=== PATIENT | male | born 1950 ===

== ENCOUNTER 2017-09-26 09:04 | Emergency (ER) | payer MEDICARE, MEDICAID ==
[2017-09-26 09:10] VITALS: BP 166/90; PULSE 90; RESP 17; TEMP 97.3; O2SAT 99
--- NOTE | 2017-09-26 09:55 | C.PDOC ---
History Of Present Illness 67 year old male presents to the ED c/o worsening left hip pain for the past 4 months. Patient states his pain is localized in the front of the hip, pain worsens with movement. Patient took Advil 2-3 pills, Tylenol with limited relief. Patient states she has not gone to she her PMD for evaluation of her symptoms. Patient denies any new trauma, other associated symptoms. WORSENING L HIP PAIN X 4 MONTHS. NO TRAUMA. NO PRIOR PMD EVAL FOR SAME. PAIN LOCALIZED FRONT OF HIT WORSE W MOVEMENT. LIMITED RELIEF W ADVIL 2-3 PILLS, TYLENOL. DENIES OTHER ASSOC SX EXAM MILD DIST NONTOXIC HIP R HIP AROM WO DIFF NONTEND; L HIP: FULL ROM REPRODUC PAIN W EXTREME FLEXION. NO FOCAL TEND. ATRAUM NEURO INTACT SKIN NO LESIONS. Time Seen by Provider: 09/26/17 09:17 Chief Complaint (Nursing): Hip Pain History Per: Patient History/Exam Limitations: no limitations Onset/Duration Of Symptoms: Days Current Symptoms Are (Timing): Still Present Recent travel outside of the [place]: No Additional History Per: Patient - Hip Description Of Injury: Other Currently Unable To: Bend Or Move Past Medical History Reviewed: Historical Data, Nursing Documentation, Vital Signs Vital Signs: Last Vital Signs Temp 97.3 F L 09/26/17 09:08 Pulse 90 09/26/17 09:08 Resp 17 09/26/17 09:08 BP 166/90 H 09/26/17 09:08 Pulse Ox 99 09/26/17 10:21 - Medical History PMH: Anxiety, Depression, HTN Denies: Asthma Surgical History: No Surg Hx Family History: States: Unknown Family Hx - Social History Hx Tobacco Use: Yes Hx Alcohol Use: Yes Hx Substance Use: No - Immunization History Hx Tetanus Toxoid Vaccination: Yes Hx Influenza Vaccination: No Hx Pneumococcal Vaccination: Yes Review Of Systems Constitutional: Negative for: Fever, Chills Cardiovascular: Negative for: Chest Pain Respiratory: Negative for: Cough, Shortness of Breath Gastrointestinal: Negative for: Nausea, Vomiting, Abdominal Pain Musculoskeletal: Positive for: Leg Pain (Hip) Skin: Negative for: Rash Neurological: Negative for: Weakness, Numbness, Headache Physical Exam - Physical Exam Appears: Non-toxic, Other (Mild distress) Skin: Normal Color, Warm, Dry Head: Atraumatic, Normacephalic Nose: No Discharge, No Deformity Extremity: Normal ROM (Right hip, no difficulty. Left Hip reproducible pain with extreme flexion), No Tenderness (right anf left hip), Capillary Refill (< 2 seconds), No Deformity (right and left hip), No Swelling, Other (No skin lesions) Neurological/Psych: Oriented x3, Normal Speech, Normal Cognition, Normal Motor, Normal Sensation, Other (No focal deficits) ED Course And Treatment O2 Sat by Pulse Oximetry: 99 (On RA) Pulse Ox Interpretation: Normal - Other Rad L HIP X-Ray: Interpreted by Me (NEG) Medical Decision Making Medical Decision Making: Impression : worsening left hip pain Plan: * Toradol 60 mg IM * Left Hip X-Ray Disposition Counseled Patient/Family Regarding: Studies Performed, Diagnosis, Need For Followup, Rx Given - Disposition Referrals: [facility] [Outside] [facility] [Outside] Callie Luu MD [Staff Provider] - Disposition: HOME/ ROUTINE Disposition Time: 10:19 Condition: IMPROVED Prescriptions: Acetaminophen [Tylenol Extra Strength] 2 tab PO Q6 #30 tablet Lidocaine 5% [Lidoderm] 1 ea TD PRN PRN #10 patch PRN Reason: Pain, Moderate (4-7) Naproxen 500 mg PO BID #30 tab Instructions: Hip Pain (ED) Forms: [facility] (Portuguese) Print Language: PORTUGUESE - Clinical Impression Clinical Impression: Chronic hip pain - Scribe Statement The provider has reviewed the documentation as recorded by the Scribe Earle Watsno All medical record entries made by the Scribe were at my direction and personally dictated by me. I have reviewed the chart and agree that the record accurately reflects my personal performance of the history, physical exam, medical decision making, and the department course for this patient. I have also personally directed, reviewed, and agree with the discharge instructions and disposition.
--- NOTE | 2017-09-26 10:20 | RAD ---
PROCEDURE: Left Hip X-ray Radiographs. HISTORY: PAIN COMPARISON: None. FINDINGS: BONES: Normal. No fracture. JOINTS: Normal. SOFT TISSUES: Normal. OTHER FINDINGS: None. IMPRESSION: Normal left hip radiographs.
== END 2017-09-26 10:35 | disposition home or self-care (01) ==
LOC: C.ER 09:04
DX: G89.29 Other chronic pain (principal); M25.552 Pain in left hip
CPT/HCPCS: 73502; 96372; 99284; J1885

== ENCOUNTER 2018-09-16 00:59 | Inpatient (IN) | payer MEDICARE, MEDICAID ==
[2018-09-16 01:15] VITALS: BMI 20.5
--- NOTE | 2018-09-16 01:17 | C.PDOC ---
History Of Present Illness The patient is brought to the ED by EMS accompanied by family for evaluation. As per family, patient was evaluated by his primary doctor for a regular visit yesterday and was prescribed antibiotics for cough. Patient went home and st arted his course of Azithromycin. Shortly after, patient had around 4-5 episodes of diarrhea and around 4 episodes of vomiting. Patients then heard a noise and found patient syncopized in the bathroom. Patient was noted to have low blood pressure (71/40) and was given 500cc of normal saline by EMS en route to the ED. Patient presents to the ED alert and oriented. He denies any pain at this time. Time Seen by Provider: 09/16/18 01:16 Chief Complaint (Nursing): Syncope History Per: Patient, EMS, Family History/Exam Limitations: no limitations Onset/Duration Of Symptoms: Hrs Current Symptoms Are (Timing): Better Severity: Severe Pain Scale Rating Of: 7 Reports Recently: Treated By A Physician Recent travel outside of the [place]: No Additional History Per: Patient, EMS, Family Past Medical History Reviewed: Historical Data, Nursing Documentation, Vital Signs Vital Signs: Last Vital Signs Temp 97.5 F L 09/16/18 01:08 Pulse 78 09/16/18 01:08 Resp 22 09/16/18 01:08 BP 78/46 L 09/16/18 01:08 Pulse Ox 88 L 09/16/18 01:08 - Medical History PMH: Anxiety, COPD, Depression, HTN Denies: Asthma Surgical History: No Surg Hx Family History: States: Unknown Family Hx - Social History Hx Tobacco Use: Yes Hx Alcohol Use: Yes Hx Substance Use: No - Immunization History Hx Tetanus Toxoid Vaccination: Yes Hx Influenza Vaccination: No Hx Pneumococcal Vaccination: No Review Of Systems Constitutional: Positive for: Weakness, Malaise. Negative for: Fever, Chills Cardiovascular: Negative for: Chest Pain, Palpitations Respiratory: Positive for: Cough. Negative for: Shortness of Breath Gastrointestinal: Positive for: Vomiting, Diarrhea. Negative for: Nausea, Abdominal Pain Genitourinary: Negative for: Dysuria Musculoskeletal: Negative for: Back Pain Skin: Negative for: Rash, Lesions, Jaundice, Bruising Neurological: Positive for: Other (sycopal episode ). Negative for: Weakness, Numbness Psych: Negative for: Anxiety Physical Exam - Physical Exam Appears: Non-toxic, In Acute Distress Skin: Warm, Dry, Other (poor turgor ) Head: Normacephalic, Other (no obvious signs of trauma/injury ) Eye(s): bilateral: Normal Inspection Oral Mucosa: Dry Neck: Supple Chest: Symmetrical, No Deformity, No Tenderness Cardiovascular: Rhythm Regular, No Murmur Respiratory: No Rales, Rhonchi (scattered), No Wheezing Gastrointestinal/Abdominal: Soft, No Tenderness, No Guarding, No Rebound Back: No CVA Tenderness Extremity: Normal ROM, Capillary Refill (less than 2 seconds ) Extremity: Bilateral: Atraumatic Pulses: Left Dorsalis Pedis: Normal, Right Dorsalis Pedis: Normal Neurological/Psych: Oriented x3 Gait: Unable To Assess ED Course And Treatment - Laboratory Results Result Diagrams: 09/16/18 01:18 09/16/18 01:18 ECG: Interpreted By Me, Viewed By Me ECG Rhythm: Sinus Rhythm O2 Sat by Pulse Oximetry: 88 (on RA) Pulse Ox Interpretation: Normal - Radiology CXR: Interpreted by Me, Viewed By Me CXR Interpretation: Yes: COPD. No: Infiltrates, Fracture, Pnemothorax Progress Note: Bloodwork, urinalysis, CT Head, CXR, EKG ordered and reviewed. Zosyn IVPB and IV Fluids given. Disposition Discussed With DrMindy: Obie Patton Comment: accepted the pt on his service and took over the care at 4:38AM Doctor Will See Patient In The: Hospital Counseled Patient/Family Regarding: Studies Performed, Diagnosis - Disposition Disposition: HOSPITALIZED Disposition Time: 01:16 Condition: FAIR Forms: [facility] (Zimbabwean) - POA Present On Arrival: Falls Or Trauma, Poor Glycemic Control - Clinical Impression Clinical Impression: Syncope, Severe dehydration, Renal insufficiency, Diarrhea, Vomiting - Scribe Statement The provider has reviewed the documentation as recorded by the Scribe (Chen Kessler) Provider Attestation: All medical record entries made by the Scribe were at my direction and personally dictated by me. I have reviewed the chart and agree that the record accurately reflects my personal performance of the history, physical exam, medical decision making, and the department course for this patient. I have also personally directed, reviewed, and agree with the discharge instructions and disposition. Decision To Admit - Pt Status Changed To: Hospital Disposition Of: Inpatient - Admit Certification Admit to Inpatient:: After my assessment, the patient will require hosp italization for at least two midnights. This is because of the severity of symptoms shown, intensity of services needed, and/or the medical risk in this patient being treated as an outpatient. - InPatient: Physician Admission Certification: I certify that this patient requires 2 or more midnights of care for the following reason:: After my assessment, the pa tient will require hospitalization for at least two midnights. This is because of the severity of symptoms shown, intensity of services needed, and/or the medical risk in this patient being treated as an outpatient. - . Bed Request Type: Telemetry Admitting Physician: Obie Patton Patient Diagnosis: Syncope, Severe dehydration, Renal insufficiency, Diarrhea, Vomiting
[2018-09-16 01:21] LABS: BASO # 0.1 K/uL (0.0-0.2); BASO % 0.9 % (0.0-2.0); LYMPH # 0.8 K/uL (1.0-4.3)
[2018-09-16 01:23] LABS: VENOUS BLOOD GAS BASE EXCESS -1.1 mmol/L (0.0-2.0); VENOUS BLOOD GAS PCO2 45 mmHg (40-60); VENOUS BLOOD GAS PO2 20 mm/Hg (30-55); VENOUS BLOOD PH 7.35 (7.32-7.43)
[2018-09-16 01:25] LABS: HEMOGLOBIN 16.2 g/dL (12.0-18.0); LYMPH % 11.3 % (20.0-40.0); MEAN CORPUSCULAR HEMOGLOBIN 34.2 pg (27.0-31.0); MEAN CORPUSCULAR HGB CONC 34.4 g/dL (33.0-37.0); MEAN PLATELET VOLUME 8.3 fL (7.2-11.7); MONO % 14.5 % (0.0-10.0); NEUT # 4.9 K/uL (1.8-7.0); NEUT % 73.3 % (50.0-75.0); NRBC % 0.1 % (0.0-2.0); RBC 4.73 Mil/uL (4.40-5.90); RED CELL DISTRIBUTION WIDTH 13.3 % (11.5-14.5); WHITE BLOOD COUNT 6.7 K/uL (4.8-10.8)
[2018-09-16 01:27] LABS: MEAN CELL VOLUME 99.3 fL (80.0-94.0)
[2018-09-16 01:31] LABS: INR 1.1
[2018-09-16 01:32] LABS: ALB/GLOB RATIO 1.3 (1.0-2.1); ALBUMIN 5.1 g/dL (3.5-5.0); CALCIUM 10.2 mg/dl (8.6-10.4)
[2018-09-16] MEDS ORDERED: Sodium Chloride 0.9% 2,000 ML IV ONE (01:39)
[2018-09-16 01:44] LABS: CK-MB 0.27 ng/mL (0.0-3.38); TROPONIN I 0.051 ng/mL (0.00-0.120)
[2018-09-16] MEDS ORDERED: Sodium Chloride 0.9% 1,000 ML IV ONE (02:28)
[2018-09-16] MEDS ORDERED: Sodium Chloride 0.9% 500 ML IV ONE (02:28)
[2018-09-16] MEDS ORDERED: Piperacillin/Tazobact 3.375 gm 100 ML IVPB STA (02:36)
[2018-09-16] MEDS ORDERED: Piperacillin/Tazobact 3.375 gm 100 ML IVPB ONE (02:45)
[2018-09-16 03:01] LABS: SPERM URINE FEW /hpf; SQUAMOUS EPITHIAL < 1 /hpf (0-5); URINE BILIRUBIN NEGATIVE (NEGATIVE); URINE BLOOD 1+ (NEGATIVE); URINE CLARITY Hazy (Clear); URINE COLOR Amber (YELLOW); URINE GLUCOSE (UA) NORMAL (Normal); URINE LEUKOCYTE ESTERASE NEG Leu/uL (Negative); URINE PROTEIN 2+ mg/dL (NEGATIVE)
[2018-09-16] MEDS ORDERED: Bacitracin 500 Units/gm Oint Foilpak UD ONE (05:30)
[2018-09-16 05:34] LABS: ABG ALLEN TEST POS; ARTERIAL BLOOD GAS HCO3 20.6 mmol/L (21-28); ARTERIAL BLOOD GAS HEMOGLOBIN 14.1 g/dL (11.7-17.4); ARTERIAL BLOOD GAS O2 SAT 97.3 % (95-98); ARTERIAL BLOOD GAS PCO2 27 mm/Hg (35-45); ARTERIAL BLOOD GAS PH 7.42 (7.35-7.45); ARTERIAL BLOOD GAS PO2 75 mm/Hg (80-100); ARTERIAL BLOOD GAS TCO2 18.3 mmol/L (22-28)
[2018-09-16 05:56] LABS: ALB/GLOB RATIO 1.3 (1.0-2.1); CALCIUM 9.1 mg/dl (8.6-10.4)
[2018-09-16] MEDS: Dextrose 5%/0.9% NS 1,000 ML IV SCH ×2 (05:57→18:08)
[2018-09-16] MEDS ORDERED: Albuterol 0.083% Inhal Sol (2.5 mg/3 mL) UD INH PRN ×2 (07:12→07:30)
--- NOTE | 2018-09-16 07:35 | RAD ---
Date of service: 09/16/2018 HISTORY: r/o infiltrate bed 7 COMPARISON: Chest radiographs 01/24/2017. FINDINGS: LUNGS: Diminished inspiratory volume. No infiltrates identified bilaterally. PLEURA: No significant pleural effusion identified, no pneumothorax apparent. CARDIOVASCULAR: No aortic atherosclerotic calcification present. Normal cardiac size. No pulmonary vascular congestion. OSSEOUS STRUCTURES: No significant abnormalities. VISUALIZED UPPER ABDOMEN: Normal. OTHER FINDINGS: None. IMPRESSION: No acute infiltrate bilaterally, pleural effusion or pulmonary vascular congestion. Diminished inspiratory volume noted in the interval.
[2018-09-16] MEDS ORDERED: Sodium Chloride 0.9% 250 ML IV ONE (07:45)
[2018-09-16] MEDS ORDERED: Albuterol 0.083% Inhal Sol (2.5 mg/3 mL) UD INH SCH (08:00)
--- NOTE | 2018-09-16 08:59 | CT ---
Date of service: 09/16/2018 PROCEDURE: CT HEAD WITHOUT CONTRAST. HISTORY: syncope COMPARISON: None available. TECHNIQUE: Axial computed tomography images were obtained through the head/brain without intravenous contrast. Radiation dose: Total exam DLP = 774.19 mGy-cm. This CT exam was performed using one or more of the following dose reduction techniques: Automated exposure control, adjustment of the mA and/or kV according to patient size, and/or use of iterative reconstruction technique. FINDINGS: HEMORRHAGE: No intracranial hemorrhage. BRAIN: Good corticomedullary differentiation is seen. Proportional, diffuse expansion of the ventriculosulcal and cisternal spaces is appreciated with white matter lucency compatible with diffuse cerebral atrophy and chronic microangiopathy. No suspicious extra-axial fluid collection is identified and the midline brain anatomy appears grossly nonfocal as imaged. There is no mass effect throughout. VENTRICLES: Unremarkable. No hydrocephalus. CALVARIUM: No fracture or destructive lesion appreciated. PARANASAL SINUSES: Multifocal mucosal plantar changes bilateral ethmoid sinuses. MASTOID AIR CELLS: Unremarkable as visualized. No inflammatory changes. OTHER FINDINGS: None. IMPRESSION: Age-appropriate age related neuro degenerative changes are identified with no definite acute intracranial findings as discussed above. Follow-up CT or MRI are available if clinically warranted. Concordant preliminary report from [facility], 09/16/2018 4:16 a.m..
[2018-09-16] MEDS: Sodium Chloride 0.9% 1,000 ML IV SCH ×4 (09:58→20:30)
[2018-09-16] MEDS ORDERED: Sodium Chloride 0.45% 1,000 ML IV ONE (10:13)
--- NOTE | 2018-09-16 15:43 | CP.PCM.CON ---
<Eh Trejo - Last Filed: 09/16/18 17:13> History of Present Illness - History of Present Illness History of Present Illness: 68 year old male with a past medical history of anxiety, depression and hypertension presents to the hospital after having a syncopal episode while at home with his . Patient was at home when his heard and noise and found her on the floor. Previously, patient had multiple episodes of non- bloody diarheaa and non-bilious, non bloody vomiting while at home. Patient was seen at his primary doctor office recently and was prescribed Azithromycin for his symptoms. Patient denies any chest pain, headaches, dizziness, fevers, chills, changes in vision, or any other complaints. PMD: Dr. De Dios Medical history: anxiety, depression, hypertension Surgical history: Denies Allergies: Denies Family history: Denies Social history: Admits tobacco and alcohol use. Denies illicit drug use. Review of Systems - Constitutional Constitutional: absent: Anorexia, Frequent Falls, Night Sweats, Weight Loss, Weakness - EENT Eyes: absent: Blurred Vision, Requires Corrective Lenses, Other Visual Disturbances Ears: absent: Ear Discharge, Dizziness Nose/Mouth/Throat: absent: Epistaxis, Nasal Congestion, Nose Pain, Bleeding Gums, Dysphagia, Mouth Pain - Cardiovascular Cardiovascular: absent: Chest Pain, Claudication, Irregular Heart Rhythm, Leg Edema, Palpitations, Syncope - Respiratory Respiratory: Cough. absent: Dyspnea, Stridor, Excessive Mucous Production - Gastrointestinal Gastrointestinal: Diarrhea, Nausea, Vomiting. absent: Abdominal Pain, Fecal Incontinence, Loose Stools - Musculoskeletal Musculoskeletal: absent: Abnormal Gait, Muscle Weakness, Stiffness - Integumentary Integumentary: absent: Alopecia, Change in Pigmentation, Photosensitivity, Swelling - Neurological Neurological: absent: Dizziness, Tremor, Vertigo, Weakness - Psychiatric Psychiatric: absent: Abnormal Sleep Pattern, Anhedonia, Hopelessness, Panic Attacks - Endocrine Endocrine: absent: Polydipsia, Polyphagia, Polyuria - Hematologic/Lymphatic Hematologic: absent: Easy Bleeding, Easy Bruising Past Patient History - Infectious Disease Hx of Infectious Diseases: None - Past Medical History & Family History Past Medical History?: Yes - Past Social History Smoking Status: Heavy Smoker > 10 Cigarettes Daily - CARDIAC Hx Cardiac Disorders: Yes Hx Hypertension: Yes - PULMONARY Hx Respiratory Disorders: Yes Hx Asthma: No Hx Chronic Obstructive Pulmonary Disease (COPD): Yes - NEUROLOGICAL Hx Neurological Disorder: Yes HX Cerebrovascular Accident: Yes - HEENT Hx HEENT Problems: No - RENAL Hx Chronic Kidney Disease: No - ENDOCRINE/METABOLIC Hx Endocrine Disorders: No - HEMATOLOGICAL/ONCOLOGICAL Hx Blood Disorders: No - INTEGUMENTARY Hx Dermatological Problems: No - MUSCULOSKELETAL/RHEUMATOLOGICAL Hx Musculoskeletal Disorders: No Hx Falls: Yes - GASTROINTESTINAL Hx Gastrointestinal Disorders: No - GENITOURINARY/GYNECOLOGICAL Hx Genitourinary Disorders: No - PSYCHIATRIC Hx Psychophysiologic Disorder: Yes Hx Anxiety: Yes Hx Depression: Yes Hx Substance Use: No - SURGICAL HISTORY Hx Surgeries: No - ANESTHESIA Hx Anesthesia: No Meds Allergies/Adverse Reactions: Allergies Allergy/AdvReac Type Severity Reaction Status Date / Time No Known Allergies Allergy Verified 09/16/18 01:16 - Medications Medications: Current Medications Acetaminophen (Tylenol 325mg Tab) 650 mg PO Q6 PRN PRN Reason: Fever >100.4 F Albuterol Sulfate (Albuterol 0.083% Inhal Deidre (2.5 Mg/3 Ml) Ud) 2.5 mg INH RQ4 PRN PRN Reason: Shortness of Breath Chlordiazepoxide (Librium) 50 mg PO Q12H [facility] Heparin Sodium (Porcine) (Heparin) 5,000 units SC Q12 [facility] Last Admin: 09/16/18 10:29 Dose: 5,000 units Dextrose/Sodium Chloride (Dextrose 5%/0.9% Ns 1000 Ml) 1,000 mls @ 80 mls/hr IV .[id number] [facility] Last Admin: 09/16/18 05:57 Dose: 80 mls/hr Sodium Chloride (Sodium Chloride 0.9%) 1,000 mls @ 250 mls/hr IV .Q4H [facility] Last Admin: 09/16/18 15:18 Dose: 250 mls/hr Influenza Virus Vaccine (Flucelvax Quad [id number] Syr) 60 mcg IM .ONCE ONE Stop: 09/17/18 10:01 Ondansetron HCl (Zofran Inj) 4 mg IVP DAILY PRN PRN Reason: Nausea/Vomiting Pantoprazole Sodium (Protonix Inj) 40 mg IVP DAILY [facility] Last Admin: 09/16/18 15:18 Dose: 40 mg Paroxetine HCl (Paxil) 20 mg PO DAILY [facility] Last Admin: 09/16/18 15:18 Dose: 20 mg Pneumococcal Polyvalent Vaccine (Pneumovax 23 Vaccine) 0.5 ml IM .ONCE ONE Stop: 09/17/18 10:01 Promethazine HCl (Phenergan Syrup) 6.25 mg PO Q4H PRN PRN Reason: Cough Physical Exam - Head Exam Head Exam: ATRAUMATIC, NORMAL INSPECTION, NORMOCEPHALIC - Eye Exam Eye Exam: EOMI, Normal appearance, PERRL. absent: Periorbital tenderness Pupil Exam: NORMAL ACCOMODATION, PERRL. absent: Irregular, Unequal - ENT Exam ENT Exam: Mucous Membranes Moist, Normal Oropharynx - Respiratory Exam Respiratory Exam: Clear to Auscultation Bilateral, NORMAL BREATHING PATTERN. absent: Prolonged Expiratory Phase, Respiratory Distress - Cardiovascular Exam Cardiovascular Exam: REGULAR RHYTHM, +S1, +S2 - GI/Abdominal Exam GI & Abdominal Exam: Normal Bowel Sounds, Soft. absent: Tenderness - Extremities Exam Extremities exam: Positive for: normal inspection. Negative for: full ROM, pedal edema - Back Exam Back exam: NORMAL INSPECTION. absent: paraspinal tenderness - Neurological Exam Neurological exam: Alert, CN II-XII Intact, Oriented x3 - Psychiatric Exam Psychiatric exam: Normal Affect, Normal Mood - Skin Skin Exam: Dry, Intact Results - Vital Signs Recent Vital Signs: Last Vital Signs Temp 97.7 F 09/16/18 12:00 Pulse 68 09/16/18 12:00 Resp 20 09/16/18 12:00 BP 96/52 L 09/16/18 12:00 Pulse Ox 96 09/16/18 12:00 - Labs Result Diagrams: 09/16/18 01:18 09/16/18 05:33 Labs: Laboratory Results - last 24 hr 09/16/18 09/16/18 09/16/18 01:05 01:08 01:15 WBC RBC Hgb Hct MCV MCH MCHC RDW Plt Count MPV Neut % (Auto) Lymph % (Auto) [place] % (Auto) Eos % (Auto) Baso % (Auto) Neut # (Auto) Lymph # (Auto) [place] # (Auto) Eos # (Auto) Baso # (Auto) PT INR APTT Puncture Site pCO2 pO2 20 L HCO3 ABG pH ABG Total CO2 ABG O2 Saturation ABG Base Excess ABG Hemoglobin ABG Carboxyhemoglobin POC ABG HHb (Measured) ABG Methemoglobin Ortiz Test VBG pH 7.35 VBG pCO2 45 VBG HCO3 22.2 VBG Total CO2 26.2 VBG O2 Sat (Calc) 34.2 L VBG Base Excess -1.1 L VBG Potassium 4.0 A-a O2 Difference Respiratory Index Hgb O2 Saturation Sodium 136.0 Chloride 98.0 Glucose 164 H Lactate 2.7 H Liter Flow FiO2 Potassium Carbon Dioxide Anion Gap BUN Creatinine Est GFR ( Amer) Est GFR (Non-Af Amer) POC Glucose (mg/dL) 175 H Random Glucose Lactic Acid Calcium Phosphorus Magnesium Total Bilirubin GGT AST ALT Alkaline Phosphatase Total Creatine Kinase CK-MB (Mass) Troponin I Total Protein Albumin Globulin Albumin/Globulin Ratio Venous Blood Potassium 4.0 Urine Color Renée Urine Clarity Hazy Urine pH 6.0 Ur Specific [place] 1.016 Urine Protein 2+ H Urine Glucose (UA) Normal Urine Ketones Negative Urine Blood 1+ H Urine Nitrate Negative Urine Bilirubin Negative Urine Urobilinogen 4.0 Ur Leukocyte Esterase Neg Urine WBC (Auto) 4 Urine RBC (Auto) 21 H Ur Squamous Epith Cells < 1 Hyaline Casts 6-10 H Urine Sperm (Auto) Few H 09/16/18 09/16/18 09/16/18 01:18 01:18 01:18 WBC 6.7 RBC 4.73 Hgb 16.2 Hct 47.0 MCV 99.3 H D MCH 34.2 H MCHC 34.4 RDW 13.3 Plt Count 349 D MPV 8.3 Neut % (Auto) 73.3 Lymph % (Auto) 11.3 L [place] % (Auto) 14.5 H Eos % (Auto) 0.0 Baso % (Auto) 0.9 Neut # (Auto) 4.9 Lymph # (Auto) 0.8 L [place] # (Auto) 1.0 H Eos # (Auto) 0.0 Baso # (Auto) 0.1 PT 12.0 INR 1.1 APTT 29 Puncture Site pCO2 pO2 HCO3 ABG pH ABG Total CO2 ABG O2 Saturation ABG Base Excess ABG Hemoglobin ABG Carboxyhemoglobin POC ABG HHb (Measured) ABG Methemoglobin Ortiz Test VBG pH VBG pCO2 VBG HCO3 VBG Total CO2 VBG O2 Sat (Calc) VBG Base Excess VBG Potassium A-a O2 Difference Respiratory Index Hgb O2 Saturation Sodium 135 Chloride 96 L Glucose Lactate Liter Flow FiO2 Potassium 4.2 Carbon Dioxide 23 Anion Gap 20 BUN 27 H Creatinine 3.1 H Est GFR ( Amer) 24 Est GFR (Non-Af Amer) 20 POC Glucose (mg/dL) Random Glucose 172 H D Lactic Acid Calcium 10.2 Phosphorus 7.3 H Magnesium 2.1 Total Bilirubin 1.1 GGT AST 84 H ALT 44 Alkaline Phosphatase 62 Total Creatine Kinase 124 CK-MB (Mass) 0.27 Troponin I 0.0510 Total Protein 9.1 H Albumin 5.1 H Globulin 4.0 H Albumin/Globulin Ratio 1.3 Venous Blood Potassium Urine Color Urine Clarity Urine pH Ur Specific [place] Urine Protein Urine Glucose (UA) Urine Ketones Urine Blood Urine Nitrate Urine Bilirubin Urine Urobilinogen Ur Leukocyte Esterase Urine WBC (Auto) Urine RBC (Auto) Ur Squamous Epith Cells Hyaline Casts Urine Sperm (Auto) 09/16/18 09/16/18 09/16/18 05:30 05:33 06:20 WBC RBC Hgb Hct MCV MCH MCHC RDW Plt Count MPV Neut % (Auto) Lymph % (Auto) [place] % (Auto) Eos % (Auto) Baso % (Auto) Neut # (Auto) Lymph # (Auto) [place] # (Auto) Eos # (Auto) Baso # (Auto) PT INR APTT Puncture Site Rr pCO2 27 L pO2 75 L HCO3 20.6 L ABG pH 7.42 ABG Total CO2 18.3 L ABG O2 Saturation 97.3 ABG Base Excess -5.4 L ABG Hemoglobin 14.1 ABG Carboxyhemoglobin 1.9 H POC ABG HHb (Measured) 2.6 ABG Methemoglobin 1.7 Ortiz Test Pos VBG pH VBG pCO2 VBG HCO3 VBG Total CO2 VBG O2 Sat (Calc) VBG Base Excess VBG Potassium A-a O2 Difference 91.0 Respiratory Index 1.2 Hgb O2 Saturation 93.8 L Sodium 134 Chloride 104 Glucose Lactate Liter Flow 2.0 FiO2 28.0 Potassium 4.1 Carbon Dioxide 21 L Anion Gap 13 BUN 24 H Creatinine 2.1 H Est GFR ( Amer) 38 Est GFR (Non-Af Amer) 31 POC Glucose (mg/dL) Random Glucose 148 H Lactic Acid 1.0 Calcium 9.1 Phosphorus Magnesium Total Bilirubin 0.9 GGT 65 AST 66 H D ALT 46 Alkaline Phosphatase 54 Total Creatine Kinase CK-MB (Mass) Troponin I Total Protein 7.1 Albumin 4.0 Globulin 3.1 Albumin/Globulin Ratio 1.3 Venous Blood Potassium Urine Color Urine Clarity Urine pH Ur Specific [place] Urine Protein Urine Glucose (UA) Urine Ketones Urine Blood Urine Nitrate Urine Bilirubin Urine Urobilinogen Ur Leukocyte Esterase Urine WBC (Auto) Urine RBC (Auto) Ur Squamous Epith Cells Hyaline Casts Urine Sperm (Auto) Assessment & Plan - Assessment and Plan (Free Text) Assessment: 68 year old male with a past medical history of hypertension, anxiety and depr ession admitted for syncopal episode. Cardiology consulted for syncope. Plan: 1.Syncope -EKG sinus rhythm on admission -Head CT: negative -Troponin (-)x1. Will trend 2. Cough -Promethazine 6.25mg PO Q4 PRN -dUONEB 2.5MG INH RQ4 PRN 3. Depression -Paxil 20mg PO Daily 4. Anxiety -Librium 50mg PO Q12 H ppx - Heparin -Protonix Plan discussed with Attending Dr. Billy. Eh Trejo, PGY-2 <José Antonio Billy - Last Filed: 09/16/18 22:06> Meds - Medications Medications: Current Medications Acetaminophen (Tylenol 325mg Tab) 650 mg PO Q6 PRN PRN Reason: Fever >100.4 F Albuterol Sulfate (Albuterol 0.083% Inhal Deidre (2.5 Mg/3 Ml) Ud) 2.5 mg INH RQ4 PRN PRN Reason: Shortness of Breath Chlordiazepoxide (Librium) 50 mg PO Q12H [facility] Last Admin: 09/16/18 18:08 Dose: 50 mg Heparin Sodium (Porcine) (Heparin) 5,000 units SC Q12 [facility] Last Admin: 09/16/18 21:46 Dose: 5,000 units Dextrose/Sodium Chloride (Dextrose 5%/0.9% Ns 1000 Ml) 1,000 mls @ 80 mls/hr IV .[id number] [facility] Last Admin: 09/16/18 18:08 Dose: Not Given Sodium Chloride (Sodium Chloride 0.9%) 1,000 mls @ 250 mls/hr IV .Q4H [facility] Last Admin: 09/16/18 20:30 Dose: Not Given Influenza Virus Vaccine (Flucelvax Quad [id number] Syr) 60 mcg IM .ONCE ONE Stop: 01/17/19 10:01 Ondansetron HCl (Zofran Inj) 4 mg IVP DAILY PRN PRN Reason: Nausea/Vomiting Pantoprazole Sodium (Protonix Inj) 40 mg IVP DAILY [facility] Last Admin: 09/16/18 15:18 Dose: 40 mg Paroxetine HCl (Paxil) 20 mg PO DAILY [facility] Last Admin: 09/16/18 15:18 Dose: 20 mg Pneumococcal Polyvalent Vaccine (Pneumovax 23 Vaccine) 0.5 ml IM .ONCE ONE Stop: 09/17/18 10:01 Promethazine HCl (Phenergan Syrup) 6.25 mg PO Q4H PRN PRN Reason: Cough Results - Vital Signs Recent Vital Signs: Last Vital Signs Temp 98.5 F 09/16/18 17:36 Pulse 75 09/16/18 17:46 Resp 18 09/16/18 17:36 BP 101/56 L 09/16/18 17:36 Pulse Ox 92 L 09/16/18 17:36 - Labs Result Diagrams: 09/16/18 01:18 09/16/18 05:33 Labs: Laboratory Results - last 24 hr 09/16/18 09/16/18 09/16/18 01:05 01:08 01:15 WBC RBC Hgb Hct MCV MCH MCHC RDW Plt Count MPV Neut % (Auto) Lymph % (Auto) [place] % (Auto) Eos % (Auto) Baso % (Auto) Neut # (Auto) Lymph # (Auto) [place] # (Auto) Eos # (Auto) Baso # (Auto) PT INR APTT Puncture Site pCO2 pO2 20 L HCO3 ABG pH ABG Total CO2 ABG O2 Saturation ABG Base Excess ABG Hemoglobin ABG Carboxyhemoglobin POC ABG HHb (Measured) ABG Methemoglobin Ortiz Test VBG pH 7.35 VBG pCO2 45 VBG HCO3 22.2 VBG Total CO2 26.2 VBG O2 Sat (Calc) 34.2 L VBG Base Excess -1.1 L VBG Potassium 4.0 A-a O2 Difference Respiratory Index Hgb O2 Saturation Sodium 136.0 Chloride 98.0 Glucose 164 H Lactate 2.7 H Liter Flow FiO2 Potassium Carbon Dioxide Anion Gap BUN Creatinine Est GFR ( Amer) Est GFR (Non-Af Amer) POC Glucose (mg/dL) 175 H Random Glucose Lactic Acid Calcium Phosphorus Magnesium Total Bilirubin GGT AST ALT Alkaline Phosphatase Total Creatine Kinase CK-MB (Mass) Troponin I Total Protein Albumin Globulin Albumin/Globulin Ratio Venous Blood Potassium 4.0 Urine Color Renée Urine Clarity Hazy Urine pH 6.0 Ur Specific [place] 1.016 Urine Protein 2+ H Urine Glucose (UA) Normal Urine Ketones Negative Urine Blood 1+ H Urine Nitrate Negative Urine Bilirubin Negative Urine Urobilinogen 4.0 Ur Leukocyte Esterase Neg Urine WBC (Auto) 4 Urine RBC (Auto) 21 H Ur Squamous Epith Cells < 1 Hyaline Casts 6-10 H Urine Sperm (Auto) Few H 09/16/18 09/16/18 09/16/18 01:18 01:18 01:18 WBC 6.7 RBC 4.73 Hgb 16.2 Hct 47.0 MCV 99.3 H D MCH 34.2 H MCHC 34.4 RDW 13.3 Plt Count 349 D MPV 8.3 Neut % (Auto) 73.3 Lymph % (Auto) 11.3 L [place] % (Auto) 14.5 H Eos % (Auto) 0.0 Baso % (Auto) 0.9 Neut # (Auto) 4.9 Lymph # (Auto) 0.8 L [place] # (Auto) 1.0 H Eos # (Auto) 0.0 Baso # (Auto) 0.1 PT 12.0 INR 1.1 APTT 29 Puncture Site pCO2 pO2 HCO3 ABG pH ABG Total CO2 ABG O2 Saturation ABG Base Excess ABG Hemoglobin ABG Carboxyhemoglobin POC ABG HHb (Measured) ABG Methemoglobin Ortiz Test VBG pH VBG pCO2 VBG HCO3 VBG Total CO2 VBG O2 Sat (Calc) VBG Base Excess VBG Potassium A-a O2 Difference Respiratory Index Hgb O2 Saturation Sodium 135 Chloride 96 L Glucose Lactate Liter Flow FiO2 Potassium 4.2 Carbon Dioxide 23 Anion Gap 20 BUN 27 H Creatinine 3.1 H Est GFR ( Amer) 24 Est GFR (Non-Af Amer) 20 POC Glucose (mg/dL) Random Glucose 172 H D Lactic Acid Calcium 10.2 Phosphorus 7.3 H Magnesium 2.1 Total Bilirubin 1.1 GGT AST 84 H ALT 44 Alkaline Phosphatase 62 Total Creatine Kinase 124 CK-MB (Mass) 0.27 Troponin I 0.0510 Total Protein 9.1 H Albumin 5.1 H Globulin 4.0 H Albumin/Globulin Ratio 1.3 Venous Blood Potassium Urine Color Urine Clarity Urine pH Ur Specific [place] Urine Protein Urine Glucose (UA) Urine Ketones Urine Blood Urine Nitrate Urine Bilirubin Urine Urobilinogen Ur Leukocyte Esterase Urine WBC (Auto) Urine RBC (Auto) Ur Squamous Epith Cells Hyaline Casts Urine Sperm (Auto) 09/16/18 09/16/18 09/16/18 05:30 05:33 06:20 WBC RBC Hgb Hct MCV MCH MCHC RDW Plt Count MPV Neut % (Auto) Lymph % (Auto) [place] % (Auto) Eos % (Auto) Baso % (Auto) Neut # (Auto) Lymph # (Auto) [place] # (Auto) Eos # (Auto) Baso # (Auto) PT INR APTT Puncture Site Rr pCO2 27 L pO2 75 L HCO3 20.6 L ABG pH 7.42 ABG Total CO2 18.3 L ABG O2 Saturation 97.3 ABG Base Excess -5.4 L ABG Hemoglobin 14.1 ABG Carboxyhemoglobin 1.9 H POC ABG HHb (Measured) 2.6 ABG Methemoglobin 1.7 Ortiz Test Pos VBG pH VBG pCO2 VBG HCO3 VBG Total CO2 VBG O2 Sat (Calc) VBG Base Excess VBG Potassium A-a O2 Difference 91.0 Respiratory Index 1.2 Hgb O2 Saturation 93.8 L Sodium 134 Chloride 104 Glucose Lactate Liter Flow 2.0 FiO2 28.0 Potassium 4.1 Carbon Dioxide 21 L Anion Gap 13 BUN 24 H Creatinine 2.1 H Est GFR ( Amer) 38 Est GFR (Non-Af Amer) 31 POC Glucose (mg/dL) Random Glucose 148 H Lactic Acid 1.0 Calcium 9.1 Phosphorus Magnesium Total Bilirubin 0.9 GGT 65 AST 66 H D ALT 46 Alkaline Phosphatase 54 Total Creatine Kinase CK-MB (Mass) Troponin I Total Protein 7.1 Albumin 4.0 Globulin 3.1 Albumin/Globulin Ratio 1.3 Venous Blood Potassium Urine Color Urine Clarity Urine pH Ur Specific [place] Urine Protein Urine Glucose (UA) Urine Ketones Urine Blood Urine Nitrate Urine Bilirubin Urine Urobilinogen Ur Leukocyte Esterase Urine WBC (Auto) Urine RBC (Auto) Ur Squamous Epith Cells Hyaline Casts Urine Sperm (Auto) 09/16/18 16:38 WBC RBC Hgb Hct MCV MCH MCHC RDW Plt Count MPV Neut % (Auto) Lymph % (Auto) [place] % (Auto) Eos % (Auto) Baso % (Auto) Neut # (Auto) Lymph # (Auto) [place] # (Auto) Eos # (Auto) Baso # (Auto) PT INR APTT Puncture Site pCO2 pO2 HCO3 ABG pH ABG Total CO2 ABG O2 Saturation ABG Base Excess ABG Hemoglobin ABG Carboxyhemoglobin POC ABG HHb (Measured) ABG Methemoglobin Ortiz Test VBG pH VBG pCO2 VBG HCO3 VBG Total CO2 VBG O2 Sat (Calc) VBG Base Excess VBG Potassium A-a O2 Difference Respiratory Index Hgb O2 Saturation Sodium Chloride Glucose Lactate Liter Flow FiO2 Potassium Carbon Dioxide Anion Gap BUN Creatinine Est GFR ( Amer) Est GFR (Non-Af Amer) POC Glucose (mg/dL) Random Glucose Lactic Acid Calcium Phosphorus Magnesium Total Bilirubin GGT AST ALT Alkaline Phosphatase Total Creatine Kinase CK-MB (Mass) Troponin I 0.0210 Total Protein Albumin Globulin Albumin/Globulin Ratio Venous Blood Potassium Urine Color Urine Clarity Urine pH Ur Specific [place] Urine Protein Urine Glucose (UA) Urine Ketones Urine Blood Urine Nitrate Urine Bilirubin Urine Urobilinogen Ur Leukocyte Esterase Urine WBC (Auto) Urine RBC (Auto) Ur Squamous Epith Cells Hyaline Casts Urine Sperm (Auto) Assessment & Plan - Assessment and Plan (Free Text) Plan: Patient examined and evaluated personally by me. Plan of care d/w the medical assistant instructor and as documented
[2018-09-17] MEDS: Dextrose 5%/0.9% NS 1,000 ML IV SCH (06:40)
[2018-09-17 07:27] LABS: BASO # 0.1 K/uL (0.0-0.2); BASO % 0.5 % (0.0-2.0); EOS % 0.1 % (0.0-4.0); LYMPH # 1.5 K/uL (1.0-4.3); LYMPH % 12.8 % (20.0-40.0); MEAN CELL VOLUME 98.2 fL (80.0-94.0); MEAN CORPUSCULAR HEMOGLOBIN 34.2 pg (27.0-31.0); MEAN CORPUSCULAR HGB CONC 34.8 g/dL (33.0-37.0); MEAN PLATELET VOLUME 8.4 fL (7.2-11.7); MONO # 0.8 K/uL (0.0-0.8); MONO % 6.9 % (0.0-10.0); NEUT % 79.7 % (50.0-75.0); NRBC % 0.1 % (0.0-2.0); RBC 3.82 Mil/uL (4.40-5.90)
[2018-09-17 07:36] LABS: WHITE BLOOD COUNT 11.3 K/uL (4.8-10.8)
[2018-09-17 07:37] LABS: HEMOGLOBIN 13.1 g/dL (12.0-18.0)
[2018-09-17 08:02] LABS: ALB/GLOB RATIO 1.2 (1.0-2.1); ALBUMIN 3.6 g/dL (3.5-5.0); ALT/SGPT 23 U/L (21-72); AST/SGOT 48 U/L (17-59); BLOOD UREA NITROGEN 12 mg/dL (9-20); CALCIUM 8.5 mg/dl (8.6-10.4); GFR NON-AFRICAN AMERICAN > 60
[2018-09-17 09:19] LABS: BARBITURATES, UR NEGATIVE (NEGATIVE); OPIATES, UR NEGATIVE (NEGATIVE); PHENCYCLIDINE, UR NEGATIVE (NEGATIVE)
[2018-09-17 09:37] LABS: BENZODIAZEPINES, UR POSITIVE (NEGATIVE)
[2018-09-17] MEDS ORDERED: Pneumococcal 23-Valent Vaccine IM ONE (10:00)
[2018-09-17] MEDS ORDERED: Influenza Vaccine 60 mcg/0.5 mL SYR (4YR UP) IM ONE (10:00)
[2018-09-17] MEDS ORDERED: Folic Acid 1 MG, Thiamine 100 MG, Multivitamin (MVI) 10 ML in Dextrose 5% In Water 1,00... IV SCH (10:30)
--- NOTE | 2018-09-17 10:44 | PCM.PSYCH ---
Initial Psychiatric Evaluation - Initial Psychiatric Evaluation Type of Admission: Voluntary Legal Status: Capacity History of Present Illness and Precipitating Events: 68 year old male with a past medical history of anxiety, depression and hypertension presents to the hospital after having a syncopal episode while at home with his . Patient was at home when his heard and noise and found her on the floor. Previously, patient had multiple episodes of non- bloody diarheaa and non-bilious, non bloody vomiting while at home. Current Medications: Active Medications Generic Name Dose Route Start Last Admin Trade Name Freq PRN Reason Stop Dose Admin Acetaminophen 650 mg 09/16/18 05:18 Tylenol 325mg Tab PO Q6 PRN Fever >100.4 F Albuterol Sulfate 2.5 mg 09/16/18 07:30 Albuterol 0.083% Inhal Deidre (2.5 Mg/3 Ml) Ud INH RQ4 PRN Shortness of Breath Chlordiazepoxide 50 mg 09/17/18 10:00 Librium PO Q12H [facility] Heparin Sodium (Porcine) 5,000 units 09/16/18 10:00 09/16/18 21:46 Heparin SC 5,000 units Q12 [facility] Administration Dextrose/Sodium Chloride 1,000 mls @ 80 mls/hr 09/16/18 05:00 09/17/18 06:40 Dextrose 5%/0.9% Ns 1000 Ml IV 80 mls/hr .[id number] [facility] Administration Sodium Chloride 1,000 mls @ 250 mls/hr 09/16/18 07:45 09/16/18 20:30 Sodium Chloride 0.9% IV Not Given .Q4H [facility] Metronidazole 500 mg in 100 mls @ 100 mls/hr 09/17/18 09:45 Flagyl IVPB Q8H [facility] Protocol Folic Acid 1 mg/ Thiamine HCl 1,011.2 mls @ 125 mls/hr 09/17/18 10:30 100 mg/ Multivitamins/Vitamin IV 09/17/18 18:35 C 10 ml/ Dextrose .Q8H6M [facility] Ondansetron HCl 4 mg 09/16/18 07:15 Zofran Inj IVP DAILY PRN Nausea/Vomiting Pantoprazole Sodium 40 mg 09/16/18 10:00 09/16/18 15:18 Protonix Inj IVP 40 mg DAILY [facility] Administration Paroxetine HCl 20 mg 09/16/18 10:00 09/16/18 15:18 Paxil PO 20 mg DAILY [facility] Administration Promethazine HCl 6.25 mg 09/16/18 05:00 Phenergan Syrup PO Q4H PRN Cough Vancomycin HCl 500 mg 09/17/18 10:00 Vancocin (Oral Or Rectal Use) PO QID [facility] Protocol Past Psychiatric History - Past Psychiatric History Pertinent Medical Hx (Current Medical&Sleep Prob, Allergies): Allergies Allergy/AdvReac Type Severity Reaction Status Date / Time No Known Allergies Allergy Verified 09/16/18 01:16 Albuterol Sulfate [Proventil Hfa] 6.7 gm IH Q6 #1 hfa.aer.ad 11/06/16 Albuterol HFA [Ventolin HFA 90 mcg/actuation (8 g)] 1 puff INH BID 09/16/18 Albuterol/Ipratropium [Combivent Respimat] 1 puff IH PRN PRN 09/16/18 Azithromycin [Z-Yayo] 500 mg PO DAILY 09/16/18 Bisoprolol Fumarate 10 mg PO DAILY 09/16/18 Lisinopril [Zestril] 5 mg PO BID 09/16/18 PARoxetine [Paxil] 40 mg PO DAILY 09/16/18 Promethazine DM [Phenergan DM Syrup] 5 ml PO Q6 PRN 09/16/18 Terazosin 2 mg PO DAILY 09/16/18
[2018-09-17] MEDS: Vancomycin 125 MG/5 ML SOLN (ORAL/RECTAL) PO SCH ×4 (11:20→22:05)
[2018-09-17] MEDS: metroNIDAZOLE IV 500 mg/100 ml 500 MG/100 ML BAG IVPB SCH ×2 (11:21→18:17)
--- NOTE | 2018-09-17 13:09 | CP.PCM.CON ---
<Heriberto Danielle - Last Filed: 09/17/18 13:14> History of Present Illness - History of Present Illness History of Present Illness: GI Fellow PGY4, Consult note. Corey Barriga is a 68M presenting with acute diarrhea, vomiting and fever. His symptoms started 2-3 days ago after taking azithromycin for a cough. He was brought to the hospital after his found heard him fall after a syncopal episode. Patient is a heavy alcohol user, confused and family is not at bedside to give full history. Upon arrival, patient was febrile >102, multiple brown diarrhea episode, with signs of severe dehydration including kidney failure. Patient was resuscitated with IV fluid and some antibiotics. PMHx - Depression, likely COPD, BPH PSHx - Denies EGD, colonoscopy FMHx - non-specific GI cancer in relative. SocHx - Heavy and current alcohol abuser and tobacco user. Lives with at home. Daughter does not know him well, but states he drinks 6 beers and 2 shots per day. Unable to obtain full ROS due to current mental state. Past Patient History - Infectious Disease Hx of Infectious Diseases: None - Past Medical History & Family History Past Medical History?: Yes - Past Social History Smoking Status: Heavy Smoker > 10 Cigarettes Daily - CARDIAC Hx Cardiac Disorders: Yes Hx Hypertension: Yes - PULMONARY Hx Respiratory Disorders: Yes Hx Asthma: No Hx Chronic Obstructive Pulmonary Disease (COPD): Yes - NEUROLOGICAL Hx Neurological Disorder: Yes HX Cerebrovascular Accident: Yes - HEENT Hx HEENT Problems: No - RENAL Hx Chronic Kidney Disease: No - ENDOCRINE/METABOLIC Hx Endocrine Disorders: No - HEMATOLOGICAL/ONCOLOGICAL Hx Blood Disorders: No - INTEGUMENTARY Hx Dermatological Problems: No - MUSCULOSKELETAL/RHEUMATOLOGICAL Hx Musculoskeletal Disorders: No Hx Falls: Yes - GASTROINTESTINAL Hx Gastrointestinal Disorders: No - GENITOURINARY/GYNECOLOGICAL Hx Genitourinary Disorders: No - PSYCHIATRIC Hx Psychophysiologic Disorder: Yes Hx Anxiety: Yes Hx Depression: Yes Hx Substance Use: No - SURGICAL HISTORY Hx Surgeries: No - ANESTHESIA Hx Anesthesia: No Meds Allergies/Adverse Reactions: Allergies Allergy/AdvReac Type Severity Reaction Status Date / Time No Known Allergies Allergy Verified 09/16/18 01:16 - Medications Medications: Current Medications Acetaminophen (Tylenol 325mg Tab) 650 mg PO Q6 PRN PRN Reason: Fever >100.4 F Albuterol Sulfate (Albuterol 0.083% Inhal Deidre (2.5 Mg/3 Ml) Ud) 2.5 mg INH RQ4 PRN PRN Reason: Shortness of Breath Chlordiazepoxide (Librium) 50 mg PO Q12H [facility] Last Admin: 09/17/18 11:20 Dose: 50 mg Heparin Sodium (Porcine) (Heparin) 5,000 units SC Q12 [facility] Last Admin: 09/17/18 11:21 Dose: Not Given Dextrose/Sodium Chloride (Dextrose 5%/0.9% Ns 1000 Ml) 1,000 mls @ 80 mls/hr IV .[id number] [facility] Last Admin: 09/17/18 06:40 Dose: 80 mls/hr Sodium Chloride (Sodium Chloride 0.9%) 1,000 mls @ 250 mls/hr IV .Q4H [facility] Last Admin: 09/16/18 20:30 Dose: Not Given Metronidazole (Flagyl) 500 mg in 100 mls @ 100 mls/hr IVPB Q8H [facility]; Protocol Last Admin: 09/17/18 11:21 Dose: 100 mls/hr Folic Acid 1 mg/ Thiamine HCl 100 mg/ Multivitamins/Vitamin C 10 ml/ Dextrose 1,011.2 mls @ 125 mls/hr IV .Q8H6M [facility] Stop: 09/17/18 18:35 Last Admin: 09/17/18 11:20 Dose: 125 mls/hr Ondansetron HCl (Zofran Inj) 4 mg IVP DAILY PRN PRN Reason: Nausea/Vomiting Pantoprazole Sodium (Protonix Inj) 40 mg IVP DAILY [facility] Last Admin: 09/17/18 11:21 Dose: 40 mg Paroxetine HCl (Paxil) 20 mg PO DAILY [facility] Last Admin: 09/17/18 11:20 Dose: 20 mg Promethazine HCl (Phenergan Syrup) 6.25 mg PO Q4H PRN PRN Reason: Cough Vancomycin HCl (Vancocin (Oral Or Rectal Use)) 500 mg PO QID [facility]; Protocol Last Admin: 09/17/18 11:20 Dose: 500 mg Physical Exam - Constitutional Appears: Non-toxic, No Acute Distress, Confused, Chronically Ill - Head Exam Head Exam: ATRAUMATIC, NORMAL INSPECTION - Eye Exam Eye Exam: EOMI, Normal appearance - ENT Exam ENT Exam: Mucous Membranes Moist, Normal Exam - Respiratory Exam Respiratory Exam: Clear to Auscultation Bilateral, Wheezes, NORMAL BREATHING PATTERN. absent: Rhonchi - Cardiovascular Exam Cardiovascular Exam: REGULAR RHYTHM, +S1, +S2 - GI/Abdominal Exam GI & Abdominal Exam: Normal Bowel Sounds, Soft. absent: Organomegaly, Tenderness - Extremities Exam Extremities exam: Positive for: normal inspection. Negative for: pedal edema - Neurological Exam Neurological exam: Altered Additional comments: Knows the name, month and year but not location. - Psychiatric Exam Psychiatric exam: Normal Affect, Normal Mood Results - Vital Signs Recent Vital Signs: Last Vital Signs Temp 99.3 F 09/17/18 12:34 Pulse 60 09/17/18 12:34 Resp 18 09/17/18 12:34 BP 126/63 09/17/18 12:34 Pulse Ox 100 09/17/18 12:34 - Labs Result Diagrams: 09/17/18 07:12 09/17/18 07:12 Labs: Laboratory Results - last 24 hr 09/16/18 09/17/18 09/17/18 16:38 07:12 07:12 WBC 11.3 H D RBC 3.82 L Hgb 13.1 D Hct 37.5 MCV 98.2 H MCH 34.2 H MCHC 34.8 RDW 13.0 Plt Count 236 D MPV 8.4 Neut % (Auto) 79.7 H Lymph % (Auto) 12.8 L [place] % (Auto) 6.9 Eos % (Auto) 0.1 Baso % (Auto) 0.5 Neut # (Auto) 9.0 H Lymph # (Auto) 1.5 [place] # (Auto) 0.8 Eos # (Auto) 0.0 Baso # (Auto) 0.1 Sodium 133 Potassium 3.7 Chloride 105 Carbon Dioxide 22 Anion Gap 11 BUN 12 Creatinine 0.9 Est GFR ( Amer) > 60 Est GFR (Non-Af Amer) > 60 Random Glucose 112 H D Calcium 8.5 L Total Bilirubin 0.7 AST 48 ALT 23 Alkaline Phosphatase 44 Troponin I 0.0210 Total Protein 6.5 Albumin 3.6 Globulin 2.9 Albumin/Globulin Ratio 1.2 Urine Opiates Screen Urine Methadone Screen Ur Barbiturates Screen Ur Phencyclidine Scrn Ur Amphetamines Screen U Benzodiazepines Scrn U Oth Cocaine Metabols U Cannabinoids Screen Alcohol, Quantitative < 10 09/17/18 08:48 WBC RBC Hgb Hct MCV MCH MCHC RDW Plt Count MPV Neut % (Auto) Lymph % (Auto) [place] % (Auto) Eos % (Auto) Baso % (Auto) Neut # (Auto) Lymph # (Auto) [place] # (Auto) Eos # (Auto) Baso # (Auto) Sodium Potassium Chloride Carbon Dioxide Anion Gap BUN Creatinine Est GFR ( Amer) Est GFR (Non-Af Amer) Random Glucose Calcium Total Bilirubin AST ALT Alkaline Phosphatase Troponin I Total Protein Albumin Globulin Albumin/Globulin Ratio Urine Opiates Screen Negative Urine Methadone Screen Negative Ur Barbiturates Screen Negative Ur Phencyclidine Scrn Negative Ur Amphetamines Screen Negative U Benzodiazepines Scrn Positive U Oth Cocaine Metabols Negative U Cannabinoids Screen Negative Alcohol, Quantitative Assessment & Plan - Assessment and Plan (Free Text) Assessment: #Acute diarrhea, ?CDAD #Severe dehydration #CHELY #Alcohol abuse #Tobacco abuse #Syncope #Depression #COPD PLAN: -Labs reviewed. -Recommend testing stool for Cdiff, culture. -Start empiric metronidazole, PO vanco for possible severe c.diff (fever, CHELY, >60yo). Improving. -CIWA protocol, agree with librium -Likely has chronic alcoholic liver disease. Continue to monitor. -Thiamine and folic acid -follow up cardiology recs for syncope -NPO as patient is confused. Advance tomorrow if stable and improving. -Recommend routine outpatient colonoscopy - Date & Time Date: 09/17/18 Time: 13:22 <Seamus Padilla - Last Filed: 09/17/18 15:36> Meds - Medications Medications: Current Medications Acetaminophen (Tylenol 325mg Tab) 650 mg PO Q6 PRN PRN Reason: Fever >100.4 F Albuterol Sulfate (Albuterol 0.083% Inhal Deidre (2.5 Mg/3 Ml) Ud) 2.5 mg INH RQ4 PRN PRN Reason: Shortness of Breath Chlordiazepoxide (Librium) 50 mg PO Q12H [facility] Last Admin: 09/17/18 11:20 Dose: 50 mg Heparin Sodium (Porcine) (Heparin) 5,000 units SC Q12 [facility] Last Admin: 09/17/18 11:21 Dose: Not Given Dextrose/Sodium Chloride (Dextrose 5%/0.9% Ns 1000 Ml) 1,000 mls @ 80 mls/hr IV .[id number] [facility] Last Admin: 09/17/18 06:40 Dose: 80 mls/hr Sodium Chloride (Sodium Chloride 0.9%) 1,000 mls @ 250 mls/hr IV .Q4H [facility] Last Admin: 09/16/18 20:30 Dose: Not Given Metronidazole (Flagyl) 500 mg in 100 mls @ 100 mls/hr IVPB Q8H [facility]; Protocol Last Admin: 09/17/18 11:21 Dose: 100 mls/hr Folic Acid 1 mg/ Thiamine HCl 100 mg/ Multivitamins/Vitamin C 10 ml/ Dextrose 1,011.2 mls @ 125 mls/hr IV .Q8H6M [facility] Stop: 09/17/18 18:35 Last Admin: 09/17/18 11:20 Dose: 125 mls/hr Ondansetron HCl (Zofran Inj) 4 mg IVP DAILY PRN PRN Reason: Nausea/Vomiting Pantoprazole Sodium (Protonix Inj) 40 mg IVP DAILY [facility] Last Admin: 09/17/18 11:21 Dose: 40 mg Paroxetine HCl (Paxil) 20 mg PO DAILY [facility] Last Admin: 09/17/18 11:20 Dose: 20 mg Promethazine HCl (Phenergan Syrup) 6.25 mg PO Q4H PRN PRN Reason: Cough Last Admin: 09/17/18 14:16 Dose: 6.25 mg Vancomycin HCl (Vancocin (Oral Or Rectal Use)) 500 mg PO QID [facility]; Protocol Last Admin: 09/17/18 14:16 Dose: 500 mg Results - Vital Signs Recent Vital Signs: Last Vital Signs Temp 99.3 F 09/17/18 12:34 Pulse 60 09/17/18 12:34 Resp 18 09/17/18 12:34 BP 126/63 09/17/18 12:34 Pulse Ox 100 09/17/18 12:34 - Labs Result Diagrams: 09/17/18 07:12 09/17/18 07:12 Labs: Laboratory Results - last 24 hr 09/16/18 09/17/18 09/17/18 16:38 07:12 07:12 WBC 11.3 H D RBC 3.82 L Hgb 13.1 D Hct 37.5 MCV 98.2 H MCH 34.2 H MCHC 34.8 RDW 13.0 Plt Count 236 D MPV 8.4 Neut % (Auto) 79.7 H Lymph % (Auto) 12.8 L [place] % (Auto) 6.9 Eos % (Auto) 0.1 Baso % (Auto) 0.5 Neut # (Auto) 9.0 H Lymph # (Auto) 1.5 [place] # (Auto) 0.8 Eos # (Auto) 0.0 Baso # (Auto) 0.1 Sodium 133 Potassium 3.7 Chloride 105 Carbon Dioxide 22 Anion Gap 11 BUN 12 Creatinine 0.9 Est GFR ( Amer) > 60 Est GFR (Non-Af Amer) > 60 Random Glucose 112 H D Hemoglobin A1c Calcium 8.5 L Total Bilirubin 0.7 AST 48 ALT 23 Alkaline Phosphatase 44 Troponin I 0.0210 Total Protein 6.5 Albumin 3.6 Globulin 2.9 Albumin/Globulin Ratio 1.2 Triglycerides Cholesterol LDL Cholesterol Direct HDL Cholesterol Vitamin B12 Folate Urine Opiates Screen Urine Methadone Screen Ur Barbiturates Screen Ur Phencyclidine Scrn Ur Amphetamines Screen U Benzodiazepines Scrn U Oth Cocaine Metabols U Cannabinoids Screen Alcohol, Quantitative < 10 09/17/18 09/17/18 09/17/18 08:48 13:57 13:57 WBC RBC Hgb Hct MCV MCH MCHC RDW Plt Count MPV Neut % (Auto) Lymph % (Auto) [place] % (Auto) Eos % (Auto) Baso % (Auto) Neut # (Auto) Lymph # (Auto) [place] # (Auto) Eos # (Auto) Baso # (Auto) Sodium Potassium Chloride Carbon Dioxide Anion Gap BUN Creatinine Est GFR ( Amer) Est GFR (Non-Af Amer) Random Glucose Hemoglobin A1c 5.3 Calcium Total Bilirubin AST ALT Alkaline Phosphatase Troponin I Total Protein Albumin Globulin Albumin/Globulin Ratio Triglycerides 73 Cholesterol 129 LDL Cholesterol Direct 59 HDL Cholesterol 52 Vitamin B12 351 Folate > 20.0 Urine Opiates Screen Negative Urine Methadone Screen Negative Ur Barbiturates Screen Negative Ur Phencyclidine Scrn Negative Ur Amphetamines Screen Negative U Benzodiazepines Scrn Positive U Oth Cocaine Metabols Negative U Cannabinoids Screen Negative Alcohol, Quantitative Attending/Attestation - Attestation I have personally seen and examined this patient.: Yes I have fully participated in the care of the patient.: Yes I have reviewed all pertinent clinical information: Yes Notes (Text): 09/17/18 15:28 I have seen and examined patient with GI fellow. Agree with above documentation with the following additions. In brief, this is a 68 year old male with history of ETOH abuse, COPD, BPH, who presents to hospital following syncopal episode at home. Patient is not able to participate in meaningful conversation due to altered mental status, additional information obtained via chart review, discussion with nursing staff and family member () at bedside. He appa rently has been consuming daily ETOH in heavy quantities for the past several years, recently took antibiotic therapy for URI and was found by in home after syncopal episode. He is currently not oriented to time/place, however as per family members he is typically coherent but does often experience "confusion." He has been having multiple episodes of diarrhea, non-bloody, over the past 2-3 days along with fever. He denies weight loss, rectal bleeding, sick contacts, recent travel, or unusual food consumption. No prior endoscopic evaluation. Review of vitals from today are normal, tmax of 102 noted yesterday. ETOH abuse COPD BPH Altered mental status Diarrhea, acute renal insufficiency - NPO - Obtain stool studies including culture, c-difficile, O/P - Begin empiric antibiotic therapy with IV flagyl, PO Vancomycin and continue to monitor clinical response - Obtain CT imaging abdomen/pelvis for further evaluation of colon and liver - Patient would eventually benefit from elective screening colonoscopy following resolution of acute medical issues - ETOH cessation counseling - Will continue to monitor patient clinical course
[2018-09-17] MEDS: Promethazine 6.25 MG/5 ML CUP PO PRN (14:16)
[2018-09-17 14:17] LABS: HDL CHOLESTEROL 52 mg/dL (30-70)
[2018-09-17 14:42] LABS: LDL CHOLESTEROL 59 mg/dL (0-129)
[2018-09-17 15:24] LABS: FOLATE > 20.0 ng/mL
[2018-09-17 15:56] LABS: IRON 15 ug/dL (49-181)
[2018-09-17 16:08] LABS: % IRON SATURATION 6 (20-55); TOTAL IRON BINDING CAPACITY 252 ug/dL (250-450)
--- NOTE | 2018-09-17 22:17 | CARD ---
APPROVED REPORT Date of service: 09/17/2018 EXAM: Two-dimensional and M-mode echocardiogram with Doppler and color Doppler. 2D DIMENSIONS IVSd0.9 (0.7-1.1cm)LVDd4.3 (3.9-5.9cm) PWd0.8 (0.7-1.1cm)LA Gkhvaz77 (18-58mL) LVDs3.4 (2.5-4.0cm)FS (%) 22.1 % LVEF (%)44.9 (>50%)LVEF (Gomez's)50.08 % M-Mode DIMENSIONS Left Atrium (MM)2.95 (2.5-4.0cm)IVSd1.28 (0.7-1.1cm) Aortic Root3.81 (2.2-3.7cm)LVDd5.90 (4.0-5.6cm) Aortic Cusp Exc.1.83 (1.5-2.0cm)PWd0.90 (0.7-1.1cm) FS (%) 21 %LVDs4.68 (2.0-3.8cm) LVEF (%)41 (>50%) Mitral Valve MV E Inzzvbgt591.9cm/sMV A Wuqkrpua03.7cm/sE/A ratio1.3 TDI Lateral E' Peak V8.80cm/sMedial E' Peak V6.93cm/sE/Lateral E'11.5 E/Medial E'14.6 Tricuspid Valve TR Peak Kszzpzyg042yc/sTR Peak Gr.46mzNbGTYT74biTc <Conclusion> Left ventricle: thickness: normal; size: normal; overall ejection fraction: 50%: diastolic filling pressures: normal Mitral valve: annulus: normal: leaflets: calcific thickening excursion: normal; no significant trans-mitral gradient: no significant incompetence: left atrium: normal Aortic valve: leaflets: normal morphology: excursion: normal; no significant trans-aortic gradient: No significant incompetence: aortic root: normal; Right sided Structures: Pulmonary valve: normal; no significant incompetence; Tricuspid valve: normal; mild incompetence: Intra-cardiac hemodynamics: pulmonary systolic pressures: 36mmHg; central venous pressures: normal No pericardial effusion
--- NOTE | 2018-09-17 22:54 | CP.PCM.PN ---
Subjective - Date & Time of Evaluation Date of Evaluation: 09/17/18 Time of Evaluation: 17:25 - Subjective Subjective: Patient seen and evaluated eview of Systems - Constitutional Constitutional: absent: Anorexia, Frequent Falls, Night Sweats, Weight Loss, Weakness - EENT Eyes: absent: Blurred Vision, Requires Corrective Lenses, Other Visual Distur bances Ears: absent: Ear Discharge, Dizziness Nose/Mouth/Throat: absent: Epistaxis, Nasal Congestion, Nose Pain, Bleeding Gums, Dysphagia, Mouth Pain - Cardiovascular Cardiovascular: absent: Chest Pain, Claudication, Irregular Heart Rhythm, Leg Edema, Palpitations, Syncope - Respiratory Respiratory: Cough. absent: Dyspnea, Stridor, Excessive Mucous Production - Gastrointestinal Gastrointestinal: Diarrhea, Nausea, Vomiting. absent: Abdominal Pain, Fecal Incontinence, Loose Stools - Musculoskeletal Musculoskeletal: absent: Abnormal Gait, Muscle Weakness, Stiffness - Integumentary Integumentary: absent: Alopecia, Change in Pigmentation, Photosensitivity, Swelling - Neurological Neurological: absent: Dizziness, Tremor, Vertigo, Weakness - Psychiatric Psychiatric: absent: Abnormal Sleep Pattern, Anhedonia, Hopelessness, Panic Attacks - Endocrine Endocrine: absent: Polydipsia, Polyphagia, Polyuria - Hematologic/Lymphatic Hematologic: absent: Easy Bleeding, Easy Bruising Physical Exam - Head Exam Head Exam: ATRAUMATIC, NORMAL INSPECTION, NORMOCEPHALIC - Eye Exam Eye Exam: EOMI, Normal appearance, PERRL. absent: Periorbital tenderness Pupil Exam: NORMAL ACCOMODATION, PERRL. absent: Irregular, Unequal - ENT Exam ENT Exam: Mucous Membranes Moist, Normal Oropharynx - Respiratory Exam Respiratory Exam: Clear to Auscultation Bilateral, NORMAL BREATHING PATTERN. absent: Prolonged Expiratory Phase, Respiratory Distress - Cardiovascular Exam Cardiovascular Exam: REGULAR RHYTHM, +S1, +S2 - GI/Abdominal Exam GI & Abdominal Exam: Normal Bowel Sounds, Soft. absent: Tenderness - Extremities Exam Extremities exam: Positive for: normal inspection. Negative for: full ROM, pedal edema - Back Exam Back exam: NORMAL INSPECTION. absent: paraspinal tenderness - Neurological Exam Neurological exam: Alert, CN II-XII Intact, Oriented x3 - Psychiatric Exam Psychiatric exam: Normal Affect, Normal Mood - Skin Skin Exam: Dry, Intact Objective - Vital Signs/Intake and Output Vital Signs (last 24 hours): Temp Pulse Resp BP Pulse Ox 97.9 F 82 24 147/83 97 09/17/18 17:30 09/17/18 17:30 09/17/18 17:30 09/17/18 17:30 09/17/18 17:30 - Medications Medications: Current Medications Acetaminophen (Tylenol 325mg Tab) 650 mg PO Q6 PRN PRN Reason: Fever >100.4 F Albuterol Sulfate (Albuterol 0.083% Inhal Deidre (2.5 Mg/3 Ml) Ud) 2.5 mg INH RQ4 PRN PRN Reason: Shortness of Breath Albuterol/Ipratropium (Duoneb 3 Mg/0.5 Mg (3 Ml) Ud) 3 ml INH RQ6 [facility] Heparin Sodium (Porcine) (Heparin) 5,000 units SC Q12 [facility] Last Admin: 09/17/18 22:18 Dose: 5,000 units Dextrose/Sodium Chloride (Dextrose 5%/0.9% Ns 1000 Ml) 1,000 mls @ 80 mls/hr IV .[id number] [facility] Last Admin: 09/17/18 06:40 Dose: 80 mls/hr Sodium Chloride (Sodium Chloride 0.9%) 1,000 mls @ 250 mls/hr IV .Q4H [facility] Last Admin: 09/16/18 20:30 Dose: Not Given Metronidazole (Flagyl) 500 mg in 100 mls @ 100 mls/hr IVPB Q8H [facility]; Protocol Last Admin: 09/17/18 18:17 Dose: 100 mls/hr Ondansetron HCl (Zofran Inj) 4 mg IVP DAILY PRN PRN Reason: Nausea/Vomiting Pantoprazole Sodium (Protonix Inj) 40 mg IVP DAILY [facility] Last Admin: 09/17/18 11:21 Dose: 40 mg Paroxetine HCl (Paxil) 20 mg PO DAILY [facility] Last Admin: 09/17/18 11:20 Dose: 20 mg Promethazine HCl (Phenergan Syrup) 6.25 mg PO Q4H PRN PRN Reason: Cough Last Admin: 09/17/18 14:16 Dose: 6.25 mg Vancomycin HCl (Vancocin (Oral Or Rectal Use)) 500 mg PO QID [facility]; Protocol Last Admin: 09/17/18 22:05 Dose: Not Given - Labs Labs: 09/17/18 07:12 09/17/18 07:12 PT 12.0 SECONDS (9.7-12.2) 09/16/18 01:18 INR 1.1 09/16/18 01:18 APTT 29 SECONDS (21-34) 09/16/18 01:18 Assessment and Plan - Assessment and Plan (Free Text) Assessment: 1.Syncope -EKG sinus rhythm on admission -Head CT: negative -Troponin (-)x3. Will trend 2. Cough -Promethazine 6.25mg PO Q4 PRN -dUONEB 2.5MG INH RQ4 PRN 3. Depression -Paxil 20mg PO Daily 4. Anxiety -Librium 50mg PO Q12 H ppx - Heparin -Protonix
[2018-09-18] MEDS: Dextrose 5%/0.9% NS 1,000 ML IV SCH ×4 (00:46→21:08)
[2018-09-18] MEDS: metroNIDAZOLE IV 500 mg/100 ml 500 MG/100 ML BAG IVPB SCH ×3 (01:29→17:22)
[2018-09-18 01:54] VITALS: RESP 20
[2018-09-18] MEDS: Albuterol-Ipratrop 3 mg / 0.5 (3 ml) UD INH SCH ×4 (02:29→19:26)
--- NOTE | 2018-09-18 06:34 | HP ---
CHIEF COMPLAINT: Syncopal attack. HISTORY OF PRESENT ILLNESS: The patient is a 68-year-old male with past medical history of anxiety, COPD, depression, hypertension, came to emergency room with the family. As per family, patient was evaluated by his primary care physician for regular visit a day before admission and was prescribed antibiotics for cough. The patient went home and started his course of azithromycin. Shortly after, the patient had around four to five episodes of diarrhea and four episodes of vomiting. The patient went heard the noise and found the patient is syncopized in the bathroom. The patient was noted to have low blood pressure 71/40 and was given 500 mL of bolus by EMS en route to ED. The patient came to ER, was alert and oriented. Denied chest pain or shortness of breath when I saw the patient on 09/15/2018. I am doing history and physical for 09/15/2018. The patient was seen and examined on bedside on 09/15/2018. His daughter was standing on the bedside, she gave me more history that was very helpful. PAST MEDICAL HISTORY: Anxiety, COPD, hypertension. PAST SURGICAL HISTORY: No surgical history. FAMILY HISTORY: Father and mother, noncontributory. ALLERGIES: THE PATIENT IS NOT ALLERGIC WITH ANY MEDICATION. MEDICATIONS: The home medications are reviewed by me. HABITS: Tobacco, yes. Alcohol, yes. Substance abuse, no. Lives with . REVIEW OF SYSTEMS: The patient was feeling fatigue and tired. No fever or chills. No chest pain, no palpitation. Has coughing, sometimes shortness of breath. Complaining about vomiting, nausea, diarrhea. No dysuria. No back pain. No rashes. Episode of syncope but not in the hospital. PHYSICAL EXAMINATION: VITAL SIGNS: Temperature 98.6, pulse 75, blood pressure 107/65, respiratory rate 20. HEENT: Head, normocephalic and atraumatic. Eyes, PERRLA. Extraocular muscles are intact. Conjunctivae clear. Nose patent. Mucous membranes moist. NECK: Supple. No carotid bruit. No JVD or thyromegaly. CHEST: Bilaterally symmetrical. HEART: S1, S2 positive. ABDOMEN: Soft, bowel sounds present. No organomegaly. EXTREMITIES: No edema. No cyanosis. NEUROLOGIC: The patient is awake and alert. Moving all four extremities. No focal deficit. LABORATORY DATA: White blood cell is 6.7, hemoglobin 16.2, hematocrit 47, platelet 349. Sodium 135, potassium 4.1, BUN 24, creatinine 2.1. On admission, BUN was 27, creatinine was 3.1, glucose 148, AST 56. ASSESSMENT AND PLAN: The patient is a 68-year-old male with hyperchloremia, renal insufficiency, improving slowly with hydration, hyperglycemia, hyperphosphatemia, abnormal liver function test, proteinuria, hematuria. Drug screen negative except the benzodiazepine. Did a CAT scan of the head, age appropriate, age related neurodegenerative changes identified with no definite acute intracranial finding as described above. Followup MRI available if clinically warranted as per radiologist, seen by psychiatrist, Dr. Callie Ochoa, seen by the operational intelligence officer, Dr. José Antonio Billy. The patient has history of anxiety, depression, hypertension. EKG shows sinus rhythm with no arrhythmias, troponin is negative. The patient is coughing, got promethazine and DuoNeb, getting Paxil for depression and getting Librium, heparin and Protonix for gastric and deep venous thrombosis prophylaxis. Discussion done with the patient's daughter, standing on the bedside. All questions answered. We will follow up. Hina Escamilla MD
[2018-09-18 08:01] LABS: HEMOGLOBIN 14.8 g/dL (12.0-18.0); MEAN CORPUSCULAR HEMOGLOBIN 34.2 pg (27.0-31.0); MEAN CORPUSCULAR HGB CONC 35.7 g/dL (33.0-37.0); MEAN PLATELET VOLUME 8.5 fL (7.2-11.7); RBC 4.32 Mil/uL (4.40-5.90); RED CELL DISTRIBUTION WIDTH 12.8 % (11.5-14.5); WHITE BLOOD COUNT 7.1 K/uL (4.8-10.8)
[2018-09-18] MEDS: Sodium Chloride 0.9% 1,000 ML IV SCH ×2 (08:17→13:16)
[2018-09-18 08:21] LABS: MEAN CELL VOLUME 95.9 fL (80.0-94.0)
[2018-09-18 08:30] LABS: BLOOD UREA NITROGEN 6 mg/dL (9-20); CALCIUM 8.6 mg/dl (8.6-10.4); GFR NON-AFRICAN AMERICAN > 60
[2018-09-18] MEDS ORDERED: Iohexol 240 (50 ml) PO ONE (08:30)
[2018-09-18] MEDS: Vancomycin 125 MG/5 ML SOLN (ORAL/RECTAL) PO SCH ×4 (09:46→22:03)
--- NOTE | 2018-09-18 10:45 | CP.PCM.PN ---
<HooddiomedesHeriberto rdz - Last Filed: 09/18/18 12:27> Subjective - Date & Time of Evaluation Date of Evaluation: 09/18/18 Time of Evaluation: 10:44 - Subjective Subjective: GI Fellow [id number], progress note Patient appears to be going through w/d. He is less conversant. Eyes closed, confused. Nursing reports he has not had any significant BMs since yesterday afternoon. No stool samples have been collected. Otherwise, no acute overnight events. AFeb, HDS. Objective - Vital Signs/Intake and Output Vital Signs (last 24 hours): Temp Pulse Resp BP Pulse Ox 97.2 F L 81 20 161/93 H 98 09/18/18 07:10 09/18/18 07:10 09/18/18 07:10 09/18/18 07:10 09/18/18 07:10 Intake and Output: 09/18/18 09/18/18 06:59 18:59 Intake Total 1640 Output Total 1000 Balance 640 - Medications Medications: Current Medications Acetaminophen (Tylenol 325mg Tab) 650 mg PO Q6 PRN PRN Reason: Fever >100.4 F Albuterol Sulfate (Albuterol 0.083% Inhal Deidre (2.5 Mg/3 Ml) Ud) 2.5 mg INH RQ4 PRN PRN Reason: Shortness of Breath Last Admin: 09/18/18 07:40 Dose: 2.5 mg Albuterol/Ipratropium (Duoneb 3 Mg/0.5 Mg (3 Ml) Ud) 3 ml INH RQ6 [facility] Last Admin: 09/18/18 07:40 Dose: 3 ml Heparin Sodium (Porcine) (Heparin) 5,000 units SC Q12 [facility] Last Admin: 09/18/18 09:41 Dose: 5,000 units Dextrose/Sodium Chloride (Dextrose 5%/0.9% Ns 1000 Ml) 1,000 mls @ 80 mls/hr IV .[id number] [facility] Last Admin: 09/18/18 07:43 Dose: Not Given Sodium Chloride (Sodium Chloride 0.9%) 1,000 mls @ 250 mls/hr IV .Q4H [facility] Last Admin: 09/18/18 08:17 Dose: Not Given Metronidazole (Flagyl) 500 mg in 100 mls @ 100 mls/hr IVPB Q8H [facility]; Protocol Last Admin: 09/18/18 09:38 Dose: 100 mls/hr Ondansetron HCl (Zofran Inj) 4 mg IVP DAILY PRN PRN Reason: Nausea/Vomiting Pantoprazole Sodium (Protonix Inj) 40 mg IVP DAILY [facility] Last Admin: 09/18/18 09:42 Dose: 40 mg Paroxetine HCl (Paxil) 20 mg PO DAILY [facility] Last Admin: 09/18/18 09:39 Dose: 20 mg Promethazine HCl (Phenergan Syrup) 6.25 mg PO Q4H PRN PRN Reason: Cough Last Admin: 09/17/18 14:16 Dose: 6.25 mg Vancomycin HCl (Vancocin (Oral Or Rectal Use)) 500 mg PO QID [facility]; Protocol Last Admin: 09/18/18 09:46 Dose: 500 mg - Labs Labs: 09/18/18 07:54 09/18/18 07:54 PT 12.0 SECONDS (9.7-12.2) 09/16/18 01:18 INR 1.1 09/16/18 01:18 APTT 29 SECONDS (21-34) 09/16/18 01:18 - Constitutional Appears: Non-toxic, No Acute Distress, Confused, Chronically Ill - Head Exam Head Exam: ATRAUMATIC, NORMAL INSPECTION - Eye Exam Eye Exam: EOMI, Normal appearance - ENT Exam ENT Exam: Mucous Membranes Moist, Normal Exam - Cardiovascular Exam Cardiovascular Exam: REGULAR RHYTHM, +S1, +S2 - GI/Abdominal Exam GI & Abdominal Exam: Soft, Normal Bowel Sounds. absent: Tenderness - Extremities Exam Extremities Exam: Full ROM, Normal Inspection - Neurological Exam Neurological Exam: Alert, Awake, Oriented x3 - Psychiatric Exam Psychiatric exam: Normal Affect, Normal Mood - Skin Skin Exam: Normal Color, Warm Assessment and Plan - Assessment and Plan (Free Text) Assessment: #Acute diarrhea, ?CDAD #Severe dehydration #CHELY #Alcohol abuse #Tobacco abuse #Syncope #Depression #COPD PLAN: -Labs reviewed. -CT A/P IV, PO contrast pending -PENDING testing stool for Cdiff, culture. -empiric metronidazole, PO vanco for possible severe c.diff (fever, CHELY, >60yo). Improving. -CIFL protocol -Likely has chronic alcoholic liver disease. Continue to monitor. -Thiamine and folic acid. Replace electrolytes. -follow up cardiology recs for syncope -Clear liquid diet -Recommend routine outpatient colonoscopy Case discussed with Dr. Padilla, see attestation. <Seamus Padilla - Last Filed: 09/18/18 12:40> Objective - Vital Signs/Intake and Output Vital Signs (last 24 hours): Temp Pulse Resp BP Pulse Ox 97.2 F L 81 20 161/93 H 98 09/18/18 07:10 09/18/18 07:10 09/18/18 07:10 09/18/18 07:10 09/18/18 07:10 Intake and Output: 09/18/18 09/18/18 06:59 18:59 Intake Total 1640 Output Total 1000 Balance 640 - Medications Medications: Current Medications Acetaminophen (Tylenol 325mg Tab) 650 mg PO Q6 PRN PRN Reason: Fever >100.4 F Albuterol Sulfate (Albuterol 0.083% Inhal Deidre (2.5 Mg/3 Ml) Ud) 2.5 mg INH RQ4 PRN PRN Reason: Shortness of Breath Last Admin: 09/18/18 07:40 Dose: 2.5 mg Albuterol/Ipratropium (Duoneb 3 Mg/0.5 Mg (3 Ml) Ud) 3 ml INH RQ6 [facility] Last Admin: 09/18/18 07:40 Dose: 3 ml Heparin Sodium (Porcine) (Heparin) 5,000 units SC Q12 [facility] Last Admin: 09/18/18 09:41 Dose: 5,000 units Dextrose/Sodium Chloride (Dextrose 5%/0.9% Ns 1000 Ml) 1,000 mls @ 80 mls/hr IV .[id number] [facility] Last Admin: 09/18/18 07:43 Dose: Not Given Sodium Chloride (Sodium Chloride 0.9%) 1,000 mls @ 250 mls/hr IV .Q4H [facility] Last Admin: 09/18/18 08:17 Dose: Not Given Metronidazole (Flagyl) 500 mg in 100 mls @ 100 mls/hr IVPB Q8H [facility]; Protocol Last Admin: 09/18/18 09:38 Dose: 100 mls/hr Magnesium Sulfate/Dextrose (Magnesium Sulfate 1 Gm/100 Ml D5w) 1 gm in 100 mls @ 300 mls/hr IVPB Q30M [facility] Stop: 09/18/18 13:19 Potassium Chloride (Potassium Chloride 20 Meq/100 Ml) 20 meq in 100 mls @ 50 mls/hr IVPB Q2 [facility] Stop: 09/18/18 19:59 Ondansetron HCl (Zofran Inj) 4 mg IVP DAILY PRN PRN Reason: Nausea/Vomiting Pantoprazole Sodium (Protonix Inj) 40 mg IVP DAILY [facility] Last Admin: 09/18/18 09:42 Dose: 40 mg Paroxetine HCl (Paxil) 20 mg PO DAILY [facility] Last Admin: 09/18/18 09:39 Dose: 20 mg Promethazine HCl (Phenergan Syrup) 6.25 mg PO Q4H PRN PRN Reason: Cough Last Admin: 09/17/18 14:16 Dose: 6.25 mg Vancomycin HCl (Vancocin (Oral Or Rectal Use)) 500 mg PO QID [facility]; Protocol Last Admin: 09/18/18 09:46 Dose: 500 mg - Labs Labs: 09/18/18 07:54 09/18/18 07:54 PT 12.0 SECONDS (9.7-12.2) 09/16/18 01:18 INR 1.1 09/16/18 01:18 APTT 29 SECONDS (21-34) 09/16/18 01:18 Attending/Attestation - Attestation I have personally seen and examined this patient.: Yes I have fully participated in the care of the patient.: Yes I have reviewed all pertinent clinical information, including history, physical exam and plan: Yes Notes (Text): 09/18/18 12:38 I have seen and examined patient with GI fellow. No acute events overnight, no bowel movements. He remains lethargic, responsive to tactile stimuli but remains disoriented. There is no reported abdominal pain, nausea, vomiting, fever/chills. Diarrhea Acute renal insufficiency ETOH abuse COPD - Clear liquid diet as tolerated - Awaiting results of stool studies - Monitor for signs of ETOH withdrawal - Follow up CT imaging results - Continue with antibiotic therapy - Will continue to monitor patient clinical course
[2018-09-18] MEDS: Magnesium Sulfate 1 gm in D5W 1 GM/100 ML BAG IVPB SCH ×2 (13:10→13:14)
--- NOTE | 2018-09-18 14:02 | CT ---
PROCEDURE: CT Abdomen and Pelvis with oral and IV contrast. HISTORY: diarrhea COMPARISON: None available TECHNIQUE: Contiguous axial images of the abdomen and pelvis. Oral and IV contrast was administered. Coronal and Sagittal reformats generated and reviewed. Contrast dose: 100 mL Visipaque 320 IV Radiation dose: Total exam DLP = 633.53 mGy-cm. This CT exam was performed using one or more of the following dose reduction techniques: Automated exposure control, adjustment of the mA and/or kV according to patient size, and/or use of iterative reconstruction technique. FINDINGS: LOWER THORAX: Bilateral dependent consolidations. No visible pleural effusion or pneumothorax. Small hiatal hernia. Gastroesophageal reflux. LIVER: Unremarkable. GALLBLADDER AND BILE DUCTS: Unremarkable. PANCREAS: Unremarkable. SPLEEN: Unremarkable. ADRENALS: Unremarkable. KIDNEYS AND URETERS: The kidneys enhance symmetrically. No hydronephrosis or obstructing renal calculus. BLADDER: Urinary bladder distension. REPRODUCTIVE: The prostate gland measures approximately 2.9 x 4.3 cm. APPENDIX: The appendix appears within normal limits of caliber. No secondary signs of acute appendicitis. BOWEL: The stomach is nondistended. The bowel loops appear within normal limits of caliber without evidence of intestinal obstruction. PERITONEUM: No significant free fluid. No definite free air. LYMPH NODES: No bulky lymphadenopathy identified. VASCULATURE: No aortic aneurysm. Dense atherosclerotic calcifications of the aorta and branches. BONES: Degenerative changes. OTHER FINDINGS: None. IMPRESSION: No acute intra-abdominal or pelvic pathology appreciated. Bilateral dependent consolidations. 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 Small hiatal hernia/distal esophageal wall thickening. Additional incidental findings as above.
[2018-09-18] MEDS ORDERED: Iodixanol 320 MG/ML 100 ML BOTTLE IV ONE (15:55)
--- NOTE | 2018-09-18 20:39 | CP.PCM.PN ---
Subjective - Date & Time of Evaluation Date of Evaluation: 09/18/18 Time of Evaluation: 07:35 - Subjective Subjective: Patient seen and evaluated. Slightly lethargic Offers no complaints eview of Systems - Constitutional Constitutional: absent: Anorexia, Frequent Falls, Night Sweats, Weight Loss, Weakness - EENT Eyes: absent: Blurred Vision, Requires Corrective Lenses, Other Visual Disturbances Ears: absent: Ear Discharge, Dizziness Nose/Mouth/Throat: absent: Epistaxis, Nasal Congestion, Nose Pain, Bleeding Gums, Dysphagia, Mouth Pain - Cardiovascular Cardiovascular: absent: Chest Pain, Claudication, Irregular Heart Rhythm, Leg Edema, Palpitations, Syncope - Respiratory Respiratory: Cough. absent: Dyspnea, Stridor, Excessive Mucous Production - Gastrointestinal Gastrointestinal: Diarrhea, Nausea, Vomiting. absent: Abdominal Pain, Fecal Incontinence, Loose Stools - Musculoskeletal Musculoskeletal: absent: Abnormal Gait, Muscle Weakness, Stiffness - Integumentary Integumentary: absent: Alopecia, Change in Pigmentation, Photosensitivity, Swelling - Neurological Neurological: absent: Dizziness, Tremor, Vertigo, Weakness - Psychiatric Psychiatric: absent: Abnormal Sleep Pattern, Anhedonia, Hopelessness, Panic A ttacks - Endocrine Endocrine: absent: Polydipsia, Polyphagia, Polyuria - Hematologic/Lymphatic Hematologic: absent: Easy Bleeding, Easy Bruising Physical Exam - Head Exam Head Exam: ATRAUMATIC, NORMAL INSPECTION, NORMOCEPHALIC - Eye Exam Eye Exam: EOMI, Normal appearance, PERRL. absent: Periorbital tenderness Pupil Exam: NORMAL ACCOMODATION, PERRL. absent: Irregular, Unequal - ENT Exam ENT Exam: Mucous Membranes Moist, Normal Oropharynx - Respiratory Exam Respiratory Exam: Clear to Auscultation Bilateral, NORMAL BREATHING PATTERN. absent: Prolonged Expiratory Phase, Respiratory Distress - Cardiovascular Exam Cardiovascular Exam: REGULAR RHYTHM, +S1, +S2 - GI/Abdominal Exam GI & Abdominal Exam: Normal Bowel Sounds, Soft. absent: Tenderness - Extremities Exam Extremities exam: Positive for: normal inspection. Negative for: full ROM, pedal edema - Back Exam Back exam: NORMAL INSPECTION. absent: paraspinal tenderness - Neurological Exam Neurological exam: Alert, CN II-XII Intact, Oriented x3 - Psychiatric Exam Psychiatric exam: Normal Affect, Normal Mood - Skin Skin Exam: Dry, Intact Assessment and Plan - Assessment and Plan (Free Text) Assessment: 1.Syncope: Non cardiogenic Likleysecondary to dehydration -EKG sinus rhythm on admission -Head CT: negative -Troponin (-)x3 ECHO: Borderline Normal EF. o major valve issues 2. Cough -Promethazine 6.25mg PO Q4 PRN -dUONEB 2.5MG INH RQ4 PRN 3. Depression -Paxil 20mg PO Daily 4. Anxiety -Librium 50mg PO Q12 H ppx - Heparin -Protonix Recommend medical management Objective - Vital Signs/Intake and Output Vital Signs (last 24 hours): Temp Pulse Resp BP Pulse Ox 97.3 F L 78 20 131/77 95 09/18/18 15:00 09/18/18 15:00 09/18/18 15:00 09/18/18 15:00 09/18/18 15:00 Intake and Output: 09/18/18 09/19/18 18:59 06:59 Intake Total 640 Output Total 400 Balance 240 - Medications Medications: Current Medications Acetaminophen (Tylenol 325mg Tab) 650 mg PO Q6 PRN PRN Reason: Fever >100.4 F Albuterol Sulfate (Albuterol 0.083% Inhal Deidre (2.5 Mg/3 Ml) Ud) 2.5 mg INH RQ4 PRN PRN Reason: Shortness of Breath Last Admin: 09/18/18 07:40 Dose: 2.5 mg Albuterol/Ipratropium (Duoneb 3 Mg/0.5 Mg (3 Ml) Ud) 3 ml INH RQ6 [facility] Last Admin: 09/18/18 19:26 Dose: 3 ml Heparin Sodium (Porcine) (Heparin) 5,000 units SC Q12 [facility] Last Admin: 09/18/18 09:41 Dose: 5,000 units Dextrose/Sodium Chloride (Dextrose 5%/0.9% Ns 1000 Ml) 1,000 mls @ 80 mls/hr IV .[id number] [facility] Last Admin: 09/18/18 17:18 Dose: 80 mls/hr Metronidazole (Flagyl) 500 mg in 100 mls @ 100 mls/hr IVPB Q8H [facility]; Protocol Last Admin: 09/18/18 17:22 Dose: 100 mls/hr Ondansetron HCl (Zofran Inj) 4 mg IVP DAILY PRN PRN Reason: Nausea/Vomiting Pantoprazole Sodium (Protonix Inj) 40 mg IVP DAILY [facility] Last Admin: 09/18/18 09:42 Dose: 40 mg Paroxetine HCl (Paxil) 20 mg PO DAILY [facility] Last Admin: 09/18/18 09:39 Dose: 20 mg Promethazine HCl (Phenergan Syrup) 6.25 mg PO Q4H PRN PRN Reason: Cough Last Admin: 09/17/18 14:16 Dose: 6.25 mg Vancomycin HCl (Vancocin (Oral Or Rectal Use)) 500 mg PO QID [facility]; Protocol Last Admin: 09/18/18 17:23 Dose: 500 mg - Labs Labs: 09/18/18 07:54 09/18/18 07:54 PT 12.0 SECONDS (9.7-12.2) 09/16/18 01:18 INR 1.1 09/16/18 01:18 APTT 29 SECONDS (21-34) 09/16/18 01:18
[2018-09-18] MEDS ORDERED: Magnesium Oxide 400 mg Tab UD PO STA (23:21)
[2018-09-19] MEDS: Albuterol-Ipratrop 3 mg / 0.5 (3 ml) UD INH SCH ×4 (01:39→19:40)
[2018-09-19] MEDS: metroNIDAZOLE IV 500 mg/100 ml 500 MG/100 ML BAG IVPB SCH ×3 (02:34→17:38)
--- NOTE | 2018-09-19 03:30 | PN ---
DATE: 09/18/2018 SUBJECTIVE: The patient is 68-year-old male. The patient was seen and examined at bedside on 09/18/2018, sleepy, arousable, does not look like in a distress. No fever. No chills. The patient is very poor historian. The family is around daughter and . Discussion done with the patient and nursing staff. PHYSICAL EXAMINATION: VITAL SIGNS: Temperature 97.9, pulse 52, respiratory rate 24, and blood pressure 147/83, pulse oximetry 97. HEENT: Head: Normocephalic, atraumatic. Eyes: PERRLA. Extraocular muscles intact. Conjunctivae clear. Nose patent. Mucous membranes moist. NECK: Supple. No carotid bruit. No thyromegaly. CHEST: Bilaterally symmetrical. HEART: S1, S2 positive. LUNGS: Clear to auscultation. ABDOMEN: Soft, bowel sounds present. No organomegaly. EXTREMITIES: No edema and no cyanosis. NEUROLOGICAL: The patient is sleepy, arousable, moving all four extremities. MEDICATIONS: Tylenol, albuterol, DuoNeb, heparin, Flagyl, Zofran, Protonix, Paxil, and Phenergan. LABORATORY DATA: White blood cell 7.1, hemoglobin 14.8, hematocrit 41.4, and platelets 229. Sodium 130, potassium 2.6, BUN 6, and creatinine 0.6. Glucose 140, random glucose 117, and magnesium 1.4. ASSESSMENT AND PLAN: Mr. Corey Barriga is a 68-year-old male with history of leukocytosis, improved with hypernatremia, hypokalemia, hyperchloremia, hyperglycemia, hypomagnesemia, iron deficiency, proteinuria, and hematuria. Drug screen is positive for benzodiazepine. Seen by program director/traffic director, Dr. Seamus Padilla. The patient is still unsure, came with diffuse diarrhea, severe dehydration, improving acute kidney injury, alcohol abuse, drug abuse, syncope, depression and chronic obstructive pulmonary disease. X-ray shows what looks like pleural atelectasis. We will call pulmonary consult. CT with contrast is pending. The patient is getting metronidazole, p.o. vancomycin. Continue monitoring. Getting thiamine, folic acid and replacement of the electrolytes. Clear liquid diet suggested. Looking results of stool studies. Monitoring for signs of ethanol withdrawal. Psychiatrist is on the case. Gastrointestinal prophylaxis, repeat labs. We will follow up. Hina Escamilla MD
[2018-09-19 07:54] LABS: HEMOGLOBIN 14.4 g/dL (12.0-18.0); MEAN CELL VOLUME 94.8 fL (80.0-94.0); MEAN CORPUSCULAR HEMOGLOBIN 33.6 pg (27.0-31.0); MEAN CORPUSCULAR HGB CONC 35.5 g/dL (33.0-37.0); RBC 4.29 Mil/uL (4.40-5.90); RED CELL DISTRIBUTION WIDTH 12.5 % (11.5-14.5); WHITE BLOOD COUNT 5.8 K/uL (4.8-10.8)
[2018-09-19 08:16] LABS: ALB/GLOB RATIO 1.2 (1.0-2.1); ALBUMIN 3.8 g/dL (3.5-5.0); ALT/SGPT 23 U/L (21-72); AST/SGOT 32 U/L (17-59); BLOOD UREA NITROGEN 4 mg/dL (9-20); CALCIUM 8.4 mg/dl (8.6-10.4); GFR NON-AFRICAN AMERICAN > 60
[2018-09-19] MEDS: Potassium Chloride 20 mEq ER Tab PO SCH (09:53)
[2018-09-19] MEDS: Ferrous Fum/Folic Acid/IF/VI 1 Cap PO SCH (09:55)
[2018-09-19] MEDS: Vancomycin 125 MG/5 ML SOLN (ORAL/RECTAL) PO SCH ×4 (09:56→21:38)
--- NOTE | 2018-09-19 10:58 | CP.PCM.CON ---
History of Present Illness - History of Present Illness History of Present Illness: Reason for consultation: Long history of smoking and cough 68-year-old male with long history of smoking, depression/anxiety, hypertension was admitted for a syncopal episode. Patient was recently seen in the PMDs office and was prescribed antibiotics for cough. Complaining of dyspnea on exertion. Denies fever chills, denies chest pain. Medical history: anxiety, depression, hypertension Surgical history: Denies Allergies: Denies Family history: Denies Social history: Admits tobacco and alcohol use. Denies illicit drug use. Review of Systems - Review of Systems All systems: reviewed and no additional remarkable complaints except (Cough) Past Patient History - Infectious Disease Hx of Infectious Diseases: None - Past Medical History & Family History Past Medical History?: Yes - Past Social History Smoking Status: Heavy Smoker > 10 Cigarettes Daily - CARDIAC Hx Cardiac Disorders: Yes Hx Hypertension: Yes - PULMONARY Hx Chronic Obstructive Pulmonary Disease (COPD): Yes - NEUROLOGICAL HX Cerebrovascular Accident: Yes - HEENT Hx HEENT Problems: No - RENAL Hx Chronic Kidney Disease: No - ENDOCRINE/METABOLIC Hx Endocrine Disorders: No - HEMATOLOGICAL/ONCOLOGICAL Hx Blood Disorders: No - INTEGUMENTARY Hx Dermatological Problems: No - MUSCULOSKELETAL/RHEUMATOLOGICAL Hx Musculoskeletal Disorders: No Hx Falls: Yes - GASTROINTESTINAL Hx Gastrointestinal Disorders: No - GENITOURINARY/GYNECOLOGICAL Hx Genitourinary Disorders: No - PSYCHIATRIC Hx Psychophysiologic Disorder: Yes Hx Anxiety: Yes Hx Depression: Yes Hx Substance Use: No - SURGICAL HISTORY Hx Surgeries: No - ANESTHESIA Hx Anesthesia: No Meds Allergies/Adverse Reactions: Allergies Allergy/AdvReac Type Severity Reaction Status Date / Time No Known Allergies Allergy Verified 09/16/18 01:16 - Medications Medications: Current Medications Albuterol Sulfate (Albuterol 0.083% Inhal Deidre (2.5 Mg/3 Ml) Ud) 2.5 mg INH RQ4 PRN PRN Reason: Shortness of Breath Last Admin: 09/18/18 07:40 Dose: 2.5 mg Albuterol/Ipratropium (Duoneb 3 Mg/0.5 Mg (3 Ml) Ud) 3 ml INH RQ6 [facility] Last Admin: 09/19/18 07:15 Dose: 3 ml Heparin Sodium (Porcine) (Heparin) 5,000 units SC Q12 [facility] Last Admin: 09/19/18 09:53 Dose: 5,000 units Dextrose/Sodium Chloride (Dextrose 5%/0.9% Ns 1000 Ml) 1,000 mls @ 80 mls/hr IV .[id number] [facility] Last Admin: 09/18/18 21:08 Dose: Not Given Metronidazole (Flagyl) 500 mg in 100 mls @ 100 mls/hr IVPB Q8H [facility]; Protocol Last Admin: 09/19/18 09:53 Dose: 100 mls/hr Iron (Ferocon) 1 cap PO DAILY [facility] Last Admin: 09/19/18 09:55 Dose: 1 cap Ondansetron HCl (Zofran Inj) 4 mg IVP DAILY PRN PRN Reason: Nausea/Vomiting Pantoprazole Sodium (Protonix Inj) 40 mg IVP DAILY [facility] Last Admin: 09/19/18 09:54 Dose: 40 mg Paroxetine HCl (Paxil) 20 mg PO DAILY [facility] Last Admin: 09/19/18 09:53 Dose: 20 mg Potassium Chloride (K-Dur 20 Meq Er Tab) 40 meq PO DAILY [facility] Last Admin: 09/19/18 09:53 Dose: 40 meq Promethazine HCl (Phenergan Syrup) 6.25 mg PO Q4H PRN PRN Reason: Cough Last Admin: 09/17/18 14:16 Dose: 6.25 mg Vancomycin HCl (Vancocin (Oral Or Rectal Use)) 500 mg PO QID [facility]; Protocol Last Admin: 09/19/18 09:56 Dose: 500 mg Physical Exam - Head Exam Head Exam: ATRAUMATIC, NORMOCEPHALIC - Eye Exam Eye Exam: Normal appearance - ENT Exam ENT Exam: Mucous Membranes Moist - Neck Exam Neck exam: Positive for: Normal Inspection - Respiratory Exam Respiratory Exam: Clear to Auscultation Bilateral - Cardiovascular Exam Cardiovascular Exam: REGULAR RHYTHM - GI/Abdominal Exam GI & Abdominal Exam: Normal Bowel Sounds, Soft - Extremities Exam Extremities exam: Positive for: normal inspection Results - Vital Signs Recent Vital Signs: Last Vital Signs Temp 97.4 F L 09/19/18 07:57 Pulse 85 09/19/18 09:58 Resp 20 09/19/18 07:57 BP 123/67 09/19/18 09:58 Pulse Ox 95 09/19/18 07:57 - Labs Result Diagrams: 09/19/18 07:30 09/19/18 07:30 Labs: Laboratory Results - last 24 hr 09/18/18 09/18/18 09/19/18 07:54 21:12 07:30 WBC RBC Hgb Hct MCV MCH MCHC RDW Plt Count MPV Sodium 131 L Potassium 2.9 L Chloride 94 L Carbon Dioxide 29 Anion Gap 12 BUN 4 L Creatinine 0.7 L Est GFR ( Amer) > 60 Est GFR (Non-Af Amer) > 60 POC Glucose (mg/dL) 140 H Random Glucose 125 H Calcium 8.4 L Magnesium 1.4 L 1.8 Total Bilirubin 0.9 AST 32 ALT 23 Alkaline Phosphatase 49 Total Protein 6.8 Albumin 3.8 Globulin 3.1 Albumin/Globulin Ratio 1.2 09/19/18 07:30 WBC 5.8 RBC 4.29 L Hgb 14.4 Hct 40.6 MCV 94.8 H MCH 33.6 H MCHC 35.5 RDW 12.5 Plt Count 248 MPV 9.0 Sodium Potassium Chloride Carbon Dioxide Anion Gap BUN Creatinine Est GFR ( Amer) Est GFR (Non-Af Amer) POC Glucose (mg/dL) Random Glucose Calcium Magnesium Total Bilirubin AST ALT Alkaline Phosphatase Total Protein Albumin Globulin Albumin/Globulin Ratio Assessment & Plan (1) COPD (chronic obstructive pulmonary disease) Status: Acute Comment: Patient with long history of smoking underlying COPD needs to be ruled out. Needs pulmonary function test as outpatient. Continue nebulizer treatment as needed. Syncope workup. Low-dose CAT scan of chest (2) Smoking addiction Status: Acute
[2018-09-19] MEDS: Promethazine 6.25 MG/5 ML CUP PO PRN (13:47)
--- NOTE | 2018-09-19 14:44 | CP.PCM.PN ---
<Joanna Cornell - Last Filed: 09/19/18 14:41> Subjective - Date & Time of Evaluation Date of Evaluation: 09/19/18 Time of Evaluation: 14:41 - Subjective Subjective: Gastroenterology Fellow/PGY6 Progress Note Patient resting comfortable. Denies abdominal pain. States tolerating liquid diet on limited response to questioning. Nursing denies acute events overnight. Denies bowel movement overnight. Objective - Vital Signs/Intake and Output Vital Signs (last 24 hours): Temp Pulse Resp BP Pulse Ox 97.4 F L 88 20 123/67 95 09/19/18 07:57 09/19/18 12:00 09/19/18 07:57 09/19/18 09:58 09/19/18 07:57 - Medications Medications: Current Medications Albuterol Sulfate (Albuterol 0.083% Inhal Deidre (2.5 Mg/3 Ml) Ud) 2.5 mg INH RQ4 PRN PRN Reason: Shortness of Breath Last Admin: 09/18/18 07:40 Dose: 2.5 mg Albuterol/Ipratropium (Duoneb 3 Mg/0.5 Mg (3 Ml) Ud) 3 ml INH RQ6 [facility] Last Admin: 09/19/18 13:15 Dose: 3 ml Heparin Sodium (Porcine) (Heparin) 5,000 units SC Q12 [facility] Last Admin: 09/19/18 09:53 Dose: 5,000 units Dextrose/Sodium Chloride (Dextrose 5%/0.9% Ns 1000 Ml) 1,000 mls @ 80 mls/hr IV .[id number] [facility] Last Admin: 09/18/18 21:08 Dose: Not Given Metronidazole (Flagyl) 500 mg in 100 mls @ 100 mls/hr IVPB Q8H [facility]; Protocol Last Admin: 09/19/18 09:53 Dose: 100 mls/hr Potassium Chloride (Potassium Chloride 20 Meq/100 Ml) 20 meq in 100 mls @ 50 mls/hr IVPB Q2 [facility] Stop: 09/19/18 15:59 Last Admin: 09/19/18 13:54 Dose: 50 mls/hr Iron (Ferocon) 1 cap PO DAILY [facility] Last Admin: 09/19/18 09:55 Dose: 1 cap Ondansetron HCl (Zofran Inj) 4 mg IVP DAILY PRN PRN Reason: Nausea/Vomiting Pantoprazole Sodium (Protonix Inj) 40 mg IVP DAILY [facility] Last Admin: 09/19/18 09:54 Dose: 40 mg Paroxetine HCl (Paxil) 20 mg PO DAILY [facility] Last Admin: 09/19/18 09:53 Dose: 20 mg Potassium Chloride (K-Dur 20 Meq Er Tab) 40 meq PO DAILY [facility] Last Admin: 09/19/18 09:53 Dose: 40 meq Promethazine HCl (Phenergan Syrup) 6.25 mg PO Q4H PRN PRN Reason: Cough Last Admin: 09/19/18 13:47 Dose: 6.25 mg Vancomycin HCl (Vancocin (Oral Or Rectal Use)) 500 mg PO QID [facility]; Protocol Last Admin: 09/19/18 13:47 Dose: 500 mg - Labs Labs: 09/19/18 07:30 09/19/18 07:30 PT 12.0 SECONDS (9.7-12.2) 09/16/18 01:18 INR 1.1 09/16/18 01:18 APTT 29 SECONDS (21-34) 09/16/18 01:18 - Constitutional Appears: Non-toxic, No Acute Distress - Head Exam Head Exam: ATRAUMATIC, NORMOCEPHALIC - Eye Exam Eye Exam: EOMI, PERRL. absent: Scleral icterus Pupil Exam: PERRL. absent: Miosis, Mydriatic - ENT Exam ENT Exam: Mucous Membranes Dry, Normal Oropharynx - Neck Exam Neck Exam: Normal Inspection - Respiratory Exam Respiratory Exam: Clear to Ausculation Bilateral. absent: Rales, Rhonchi, Wheezes - Cardiovascular Exam Cardiovascular Exam: RRR, +S1, +S2. absent: Gallop, Rubs - GI/Abdominal Exam GI & Abdominal Exam: Soft, Hypoactive Bowel Sounds. absent: Distended, Firm, Guarding, Rigid, Tenderness, Organomegaly, Rebound - Extremities Exam Extremities Exam: Normal Inspection. absent: Pedal Edema - Neurological Exam Neurological Exam: Altered, Awake - Psychiatric Exam Psychiatric exam: Normal Affect, Normal Mood - Skin Skin Exam: Dry, Intact, Normal Color, Warm Assessment and Plan - Assessment and Plan (Free Text) Assessment: 68 year old male with PMH of COPD and Alcohol abuse presenting with diarrhea. Active treatment of diarrhea and resolved CHELY in setting of GI fluid loss and dehydration. No prior colonoscopy. Plan: -CT A/P PO/IV contrast- no acute bowel pathology -no bowel movement to collect stool studies -continue empiric Cdiff coverage -on day 3 Flagyl IV and vacomycin PO -on alcohol withdrawal protocol -liquid diet as tolerated given continue lethargy -will follow clinical course <Jaden Jett - Last Filed: 09/19/18 22:45> Objective - Vital Signs/Intake and Output Vital Signs (last 24 hours): Temp Pulse Resp BP Pulse Ox 97.3 F L 92 H 20 116/67 94 L 09/19/18 15:00 09/19/18 15:00 09/19/18 15:00 09/19/18 15:00 09/19/18 15:00 Intake and Output: 09/19/18 09/20/18 18:59 06:59 Intake Total 940 Balance 940 - Medications Medications: Current Medications Albuterol Sulfate (Albuterol 0.083% Inhal Deidre (2.5 Mg/3 Ml) Ud) 2.5 mg INH RQ4 PRN PRN Reason: Shortness of Breath Last Admin: 09/18/18 07:40 Dose: 2.5 mg Albuterol/Ipratropium (Duoneb 3 Mg/0.5 Mg (3 Ml) Ud) 3 ml INH RQ6 [facility] Last Admin: 09/19/18 19:40 Dose: 3 ml Heparin Sodium (Porcine) (Heparin) 5,000 units SC Q12 [facility] Last Admin: 09/19/18 21:38 Dose: 5,000 units Dextrose/Sodium Chloride (Dextrose 5%/0.9% Ns 1000 Ml) 1,000 mls @ 80 mls/hr IV .[id number] [facility] Last Admin: 09/19/18 21:39 Dose: 80 mls/hr Metronidazole (Flagyl) 500 mg in 100 mls @ 100 mls/hr IVPB Q8H [facility]; Protocol Last Admin: 09/19/18 17:38 Dose: 100 mls/hr Iron (Ferocon) 1 cap PO DAILY [facility] Last Admin: 09/19/18 09:55 Dose: 1 cap Ondansetron HCl (Zofran Inj) 4 mg IVP DAILY PRN PRN Reason: Nausea/Vomiting Pantoprazole Sodium (Protonix Inj) 40 mg IVP DAILY [facility] Last Admin: 09/19/18 09:54 Dose: 40 mg Paroxetine HCl (Paxil) 20 mg PO DAILY [facility] Last Admin: 09/19/18 09:53 Dose: 20 mg Potassium Chloride (K-Dur 20 Meq Er Tab) 40 meq PO DAILY [facility] Last Admin: 09/19/18 09:53 Dose: 40 meq Promethazine HCl (Phenergan Syrup) 6.25 mg PO Q4H PRN PRN Reason: Cough Last Admin: 09/19/18 13:47 Dose: 6.25 mg Vancomycin HCl (Vancocin (Oral Or Rectal Use)) 500 mg PO QID [facility]; Protocol Last Admin: 09/19/18 21:38 Dose: 500 mg - Labs Labs: 09/19/18 07:30 09/19/18 07:30 PT 12.0 SECONDS (9.7-12.2) 09/16/18 01:18 INR 1.1 09/16/18 01:18 APTT 29 SECONDS (21-34) 09/16/18 01:18 Attending/Attestation - Attestation I have personally seen and examined this patient.: Yes I have fully participated in the care of the patient.: Yes I have reviewed all pertinent clinical information, including history, physical exam and plan: Yes Notes (Text): 09/19/18 22:45 Chart reviewed. Pt examined this am and discussed with Dr. Cornell. Agree with the above-documented assessment and recommendations.
[2018-09-19] MEDS: Dextrose 5%/0.9% NS 1,000 ML IV SCH (21:39)
--- NOTE | 2018-09-20 00:09 | CP.PCM.PN ---
Subjective - Date & Time of Evaluation Date of Evaluation: 09/19/18 Time of Evaluation: 08:20 - Subjective Subjective: Patient seen and evaluated. Slightly lethargic Offers no complaints eview of Systems - Constitutional Constitutional: absent: Anorexia, Frequent Falls, Night Sweats, Weight Loss, Weakness - EENT Eyes: absent: Blurred Vision, Requires Corrective Lenses, Other Visual Disturbances Ears: absent: Ear Discharge, Dizziness Nose/Mouth/Throat: absent: Epistaxis, Nasal Congestion, Nose Pain, Bleeding Gums, Dysphagia, Mouth Pain - Cardiovascular Cardiovascular: absent: Chest Pain, Claudication, Irregular Heart Rhythm, Leg Edema, Palpitations, Syncope - Respiratory Respiratory: Cough. absent: Dyspnea, Stridor, Excessive Mucous Production - Gastrointestinal Gastrointestinal: Diarrhea, Nausea, Vomiting. absent: Abdominal Pain, Fecal Incontinence, Loose Stools - Musculoskeletal Musculoskeletal: absent: Abnormal Gait, Muscle Weakness, Stiffness - Integumentary Integumentary: absent: Alopecia, Change in Pigmentation, Photosensitivity, Swelling - Neurological Neurological: absent: Dizziness, Tremor, Vertigo, Weakness - Psychiatric Psychiatric: absent: Abnormal Sleep Pattern, Anhedonia, Hopelessness, Panic A ttacks - Endocrine Endocrine: absent: Polydipsia, Polyphagia, Polyuria - Hematologic/Lymphatic Hematologic: absent: Easy Bleeding, Easy Bruising Physical Exam - Head Exam Head Exam: ATRAUMATIC, NORMAL INSPECTION, NORMOCEPHALIC - Eye Exam Eye Exam: EOMI, Normal appearance, PERRL. absent: Periorbital tenderness Pupil Exam: NORMAL ACCOMODATION, PERRL. absent: Irregular, Unequal - ENT Exam ENT Exam: Mucous Membranes Moist, Normal Oropharynx - Respiratory Exam Respiratory Exam: Clear to Auscultation Bilateral, NORMAL BREATHING PATTERN. absent: Prolonged Expiratory Phase, Respiratory Distress - Cardiovascular Exam Cardiovascular Exam: REGULAR RHYTHM, +S1, +S2 - GI/Abdominal Exam GI & Abdominal Exam: Normal Bowel Sounds, Soft. absent: Tenderness - Extremities Exam Extremities exam: Positive for: normal inspection. Negative for: full ROM, pedal edema - Back Exam Back exam: NORMAL INSPECTION. absent: paraspinal tenderness - Neurological Exam Neurological exam: Alert, CN II-XII Intact, Oriented x3 - Psychiatric Exam Psychiatric exam: Normal Affect, Normal Mood - Skin Skin Exam: Dry, Intact Assessment and Plan - Assessment and Plan (Free Text) Assessment: 1.Syncope: Non cardiogenic Likleysecondary to dehydration -EKG sinus rhythm on admission -Head CT: negative -Troponin (-)x3 ECHO: Borderline Normal EF. o major valve issues 2. Cough -Promethazine 6.25mg PO Q4 PRN -dUONEB 2.5MG INH RQ4 PRN 3. Depression -Paxil 20mg PO Daily 4. Anxiety -Librium 50mg PO Q12 H ppx - Heparin -Protonix Recommend medical management Objective - Vital Signs/Intake and Output Vital Signs (last 24 hours): Temp Pulse Resp BP Pulse Ox 97.3 F L 92 H 20 116/67 94 L 09/19/18 15:00 09/19/18 15:00 09/19/18 15:00 09/19/18 15:00 09/19/18 15:00 Intake and Output: 09/19/18 09/20/18 18:59 06:59 Intake Total 940 1460 Output Total 700 Balance 940 760 - Medications Medications: Current Medications Albuterol Sulfate (Albuterol 0.083% Inhal Deidre (2.5 Mg/3 Ml) Ud) 2.5 mg INH RQ4 PRN PRN Reason: Shortness of Breath Last Admin: 09/18/18 07:40 Dose: 2.5 mg Albuterol/Ipratropium (Duoneb 3 Mg/0.5 Mg (3 Ml) Ud) 3 ml INH RQ6 [facility] Last Admin: 09/19/18 19:40 Dose: 3 ml Heparin Sodium (Porcine) (Heparin) 5,000 units SC Q12 [facility] Last Admin: 09/19/18 21:38 Dose: 5,000 units Dextrose/Sodium Chloride (Dextrose 5%/0.9% Ns 1000 Ml) 1,000 mls @ 80 mls/hr IV .[id number] [facility] Last Admin: 09/19/18 21:39 Dose: 80 mls/hr Metronidazole (Flagyl) 500 mg in 100 mls @ 100 mls/hr IVPB Q8H [facility]; Protocol Last Admin: 09/19/18 17:38 Dose: 100 mls/hr Iron (Ferocon) 1 cap PO DAILY [facility] Last Admin: 09/19/18 09:55 Dose: 1 cap Ondansetron HCl (Zofran Inj) 4 mg IVP DAILY PRN PRN Reason: Nausea/Vomiting Pantoprazole Sodium (Protonix Inj) 40 mg IVP DAILY [facility] Last Admin: 09/19/18 09:54 Dose: 40 mg Paroxetine HCl (Paxil) 20 mg PO DAILY [facility] Last Admin: 09/19/18 09:53 Dose: 20 mg Potassium Chloride (K-Dur 20 Meq Er Tab) 40 meq PO DAILY [facility] Last Admin: 09/19/18 09:53 Dose: 40 meq Promethazine HCl (Phenergan Syrup) 6.25 mg PO Q4H PRN PRN Reason: Cough Last Admin: 09/19/18 13:47 Dose: 6.25 mg Vancomycin HCl (Vancocin (Oral Or Rectal Use)) 500 mg PO QID [facility]; Protocol Last Admin: 09/19/18 21:38 Dose: 500 mg - Labs Labs: 09/19/18 07:30 09/19/18 07:30 PT 12.0 SECONDS (9.7-12.2) 09/16/18 01:18 INR 1.1 09/16/18 01:18 APTT 29 SECONDS (21-34) 09/16/18 01:18
[2018-09-20] MEDS: metroNIDAZOLE IV 500 mg/100 ml 500 MG/100 ML BAG IVPB SCH ×2 (02:16→09:18)
[2018-09-20] MEDS: Albuterol-Ipratrop 3 mg / 0.5 (3 ml) UD INH SCH ×4 (02:23→17:10)
--- NOTE | 2018-09-20 04:12 | PN ---
DATE: 09/19/2018 The patient is a 68-year-old male. The patient was seen and examined at bedside on 09/19/2018. Looking comfortable. Has long history of smoking, depression, anxiety, hypertension. He was admitted with syncopal attack. History of hypertension, COPD. 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 Continue nebulizer treatment. workup is in progress. Low-dose CAT scan of the chest needed. Smoking addiction, urged to quit smoking. Discussion was done with the patient and the patient's family. Seen by GI, Dr. Seamus Padilla. History of alcohol abuse, resolved. Acute kidney injury with setting of gastrointestinal fluid loss and dehydration. No prior colonoscopy. CT scan with p.o. and IV contrast reviewed. No acute bowel pathology. No bowel movement stool studies. Continue Nguyen's C. difficile toxin coverage. On day 3 of Flagyl IV and vancomycin. On alcohol withdrawal protocol. Liquid diet as tolerated. Out of bed. Physical therapy. Repeat labs. Hina Escamilla MD TRIPP
[2018-09-20 08:35] LABS: BLOOD UREA NITROGEN 5 mg/dL (9-20); CALCIUM 8.6 mg/dl (8.6-10.4); GFR NON-AFRICAN AMERICAN > 60
--- NOTE | 2018-09-20 09:00 | CP.PCM.PN ---
<Joanna Cornell - Last Filed: 09/20/18 08:57> Subjective - Date & Time of Evaluation Date of Evaluation: 09/20/18 Time of Evaluation: 08:58 - Subjective Subjective: Gastroenterology Fellow/PGY6 Progress Note Patient easily arousable. Remains confused but less lethargic. Denies abdominal pain and tolerating liquid diet. Nursing denies bowel movement last 24 hours. Limited review of systems as patient is confused. Objective - Vital Signs/Intake and Output Vital Signs (last 24 hours): Temp Pulse Resp BP Pulse Ox 97.4 F L 91 H 20 113/70 95 09/20/18 07:50 09/20/18 07:50 09/20/18 07:50 09/20/18 07:50 09/20/18 07:50 Intake and Output: 09/20/18 09/20/18 06:59 18:59 Intake Total 1460 Output Total 1650 Balance -190 - Medications Medications: Current Medications Albuterol Sulfate (Albuterol 0.083% Inhal Deidre (2.5 Mg/3 Ml) Ud) 2.5 mg INH RQ4 PRN PRN Reason: Shortness of Breath Last Admin: 09/18/18 07:40 Dose: 2.5 mg Albuterol/Ipratropium (Duoneb 3 Mg/0.5 Mg (3 Ml) Ud) 3 ml INH RQ6 [facility] Last Admin: 09/20/18 08:42 Dose: 3 ml Heparin Sodium (Porcine) (Heparin) 5,000 units SC Q12 [facility] Last Admin: 09/19/18 21:38 Dose: 5,000 units Dextrose/Sodium Chloride (Dextrose 5%/0.9% Ns 1000 Ml) 1,000 mls @ 80 mls/hr IV .[id number] [facility] Last Admin: 09/19/18 21:39 Dose: 80 mls/hr Metronidazole (Flagyl) 500 mg in 100 mls @ 100 mls/hr IVPB Q8H [facility]; Protocol Last Admin: 09/20/18 02:16 Dose: 100 mls/hr Iron (Ferocon) 1 cap PO DAILY [facility] Last Admin: 09/19/18 09:55 Dose: 1 cap Ondansetron HCl (Zofran Inj) 4 mg IVP DAILY PRN PRN Reason: Nausea/Vomiting Pantoprazole Sodium (Protonix Inj) 40 mg IVP DAILY [facility] Last Admin: 09/19/18 09:54 Dose: 40 mg Paroxetine HCl (Paxil) 20 mg PO DAILY [facility] Last Admin: 09/19/18 09:53 Dose: 20 mg Potassium Chloride (K-Dur 20 Meq Er Tab) 40 meq PO DAILY [facility] Last Admin: 09/19/18 09:53 Dose: 40 meq Promethazine HCl (Phenergan Syrup) 6.25 mg PO Q4H PRN PRN Reason: Cough Last Admin: 09/19/18 13:47 Dose: 6.25 mg Vancomycin HCl (Vancocin (Oral Or Rectal Use)) 500 mg PO QID [facility]; Protocol Last Admin: 09/19/18 21:38 Dose: 500 mg - Labs Labs: 09/19/18 07:30 09/20/18 07:56 PT 12.0 SECONDS (9.7-12.2) 09/16/18 01:18 INR 1.1 09/16/18 01:18 APTT 29 SECONDS (21-34) 09/16/18 01:18 - Constitutional Appears: Non-toxic, No Acute Distress - Head Exam Head Exam: ATRAUMATIC, NORMOCEPHALIC - Eye Exam Eye Exam: EOMI, PERRL. absent: Scleral icterus Pupil Exam: PERRL. absent: Miosis, Mydriatic - ENT Exam ENT Exam: Mucous Membranes Moist, Normal Oropharynx - Respiratory Exam Respiratory Exam: Clear to Ausculation Bilateral. absent: Rales, Rhonchi, Wheezes - Cardiovascular Exam Cardiovascular Exam: RRR, +S1, +S2. absent: Gallop, Rubs - GI/Abdominal Exam GI & Abdominal Exam: Soft, Normal Bowel Sounds. absent: Distended, Firm, Guarding, Rigid, Tenderness, Organomegaly, Rebound - Extremities Exam Extremities Exam: Normal Inspection. absent: Pedal Edema - Neurological Exam Neurological Exam: Alert, Awake - Psychiatric Exam Psychiatric exam: Normal Affect, Normal Mood - Skin Skin Exam: Dry, Intact, Normal Color, Warm Assessment and Plan - Assessment and Plan (Free Text) Assessment: 68 year old male with PMH of COPD and Alcohol abuse presenting with diarrhea. Active treatment of empiric Cdiff diarrhea coverage and resolved CHELY in setting of GI fluid loss and dehydration. No prior colonoscopy. Plan: -CT A/P PO/IV contrast- no acute bowel pathology -no bowel movements to collect stool studies -continue empiric Cdiff coverage -on day 4 Flagyl IV and vacomycin PO -advanced to full liquid diet today given improving lethargy -will follow clinical course <Jaden Jett - Last Filed: 09/20/18 10:51> Objective - Vital Signs/Intake and Output Vital Signs (last 24 hours): Temp Pulse Resp BP Pulse Ox 97.4 F L 91 H 20 113/70 95 09/20/18 07:50 09/20/18 07:50 09/20/18 07:50 09/20/18 07:50 09/20/18 07:50 Intake and Output: 09/20/18 09/20/18 06:59 18:59 Intake Total 1460 Output Total 1650 Balance -190 - Medications Medications: Current Medications Albuterol Sulfate (Albuterol 0.083% Inhal Deidre (2.5 Mg/3 Ml) Ud) 2.5 mg INH RQ4 PRN PRN Reason: Shortness of Breath Last Admin: 09/18/18 07:40 Dose: 2.5 mg Albuterol/Ipratropium (Duoneb 3 Mg/0.5 Mg (3 Ml) Ud) 3 ml INH RQ6 [facility] Last Admin: 09/20/18 08:42 Dose: 3 ml Heparin Sodium (Porcine) (Heparin) 5,000 units SC Q12 [facility] Last Admin: 09/20/18 09:17 Dose: 5,000 units Dextrose/Sodium Chloride (Dextrose 5%/0.9% Ns 1000 Ml) 1,000 mls @ 80 mls/hr IV .[id number] [facility] Last Admin: 09/19/18 21:39 Dose: 80 mls/hr Iron (Ferocon) 1 cap PO DAILY [facility] Last Admin: 09/20/18 09:17 Dose: 1 cap Ondansetron HCl (Zofran Inj) 4 mg IVP DAILY PRN PRN Reason: Nausea/Vomiting Pantoprazole Sodium (Protonix Inj) 40 mg IVP DAILY [facility] Last Admin: 09/20/18 09:17 Dose: 40 mg Paroxetine HCl (Paxil) 20 mg PO DAILY [facility] Last Admin: 09/20/18 09:17 Dose: 20 mg Potassium Chloride (K-Dur 20 Meq Er Tab) 40 meq PO DAILY [facility] Last Admin: 01/20/19 09:17 Dose: 40 meq Promethazine HCl (Phenergan Syrup) 6.25 mg PO Q4H PRN PRN Reason: Cough Last Admin: 09/19/18 13:47 Dose: 6.25 mg Vancomycin HCl (Vancocin (Oral Or Rectal Use)) 500 mg PO QID [facility]; Protocol Last Admin: 09/20/18 09:18 Dose: 500 mg - Labs Labs: 09/19/18 07:30 09/20/18 07:56 PT 12.0 SECONDS (9.7-12.2) 09/16/18 01:18 INR 1.1 09/16/18 01:18 APTT 29 SECONDS (21-34) 09/16/18 01:18 Attending/Attestation - Attestation I have personally seen and examined this patient.: Yes I have fully participated in the care of the patient.: Yes I have reviewed all pertinent clinical information, including history, physical exam and plan: Yes Notes (Text): 09/20/18 10:50 The pt was seen, examined, discussed with Dr. Cornell and pt's nurse. Agree with the above assessment and recommendations.
[2018-09-20] MEDS: Ferrous Fum/Folic Acid/IF/VI 1 Cap PO SCH (09:17)
[2018-09-20] MEDS: Potassium Chloride 20 mEq ER Tab PO SCH (09:17)
[2018-09-20] MEDS: Vancomycin 125 MG/5 ML SOLN (ORAL/RECTAL) PO SCH ×3 (09:18→22:07)
--- NOTE | 2018-09-20 11:30 | CP.PCM.PN ---
Subjective - Date & Time of Evaluation Date of Evaluation: 09/20/18 Time of Evaluation: 11:14 - Subjective Subjective: Pulmonary, Covering Dr Flood The Patient was seen and examined at the bedside, Medical records reviewed, and management issues were discussed and formulated with the house staff. Events reviewed Mr Barriga is a 68-year-old male with long history of smoking, hypertension and depression/anxiety Who was admitted for a syncopal episode. Patient was recently seen in the PMDs office and was prescribed antibiotics for cough. Patient was admitted to the hospital 09/16 and currently undergoing syncope workup, he was also seen by cardiology and neurology Pulmonary consultation called for Long history of smoking and cough Complaining of dyspnea on exertion. Denies fever chills, denies chest pain. Social history: Admits tobacco and alcohol use. Denies illicit drug use. He was started on promethazine and DuoNeb Promethazine 6.25mg PO Q4 PRN Duoneb INH RQ4 PRN He is doing better today Respiratory status has been stable since admission Afebrile Saturation is 95-97% on room air Continue nebulizer treatment as needed. Syncope workup. Patient will need full pulmonary function testing which could be done as an outpatient Low-dose CAT scan of chest, considering his age and heavy smoking history as a risk factors Objective - Vital Signs/Intake and Output Vital Signs (last 24 hours): Temp Pulse Resp BP Pulse Ox 97.4 F L 91 H 20 113/70 95 09/20/18 07:50 09/20/18 07:50 09/20/18 07:50 09/20/18 07:50 09/20/18 07:50 Intake and Output: 09/20/18 09/20/18 06:59 18:59 Intake Total 1460 Output Total 1650 Balance -190 - Medications Medications: Current Medications Albuterol Sulfate (Albuterol 0.083% Inhal Deidre (2.5 Mg/3 Ml) Ud) 2.5 mg INH RQ4 PRN PRN Reason: Shortness of Breath Last Admin: 09/18/18 07:40 Dose: 2.5 mg Albuterol/Ipratropium (Duoneb 3 Mg/0.5 Mg (3 Ml) Ud) 3 ml INH RQ6 [facility] Last Admin: 09/20/18 08:42 Dose: 3 ml Heparin Sodium (Porcine) (Heparin) 5,000 units SC Q12 [facility] Last Admin: 09/20/18 09:17 Dose: 5,000 units Dextrose/Sodium Chloride (Dextrose 5%/0.9% Ns 1000 Ml) 1,000 mls @ 80 mls/hr IV .[id number] [facility] Last Admin: 09/19/18 21:39 Dose: 80 mls/hr Iron (Ferocon) 1 cap PO DAILY [facility] Last Admin: 09/20/18 09:17 Dose: 1 cap Ondansetron HCl (Zofran Inj) 4 mg IVP DAILY PRN PRN Reason: Nausea/Vomiting Pantoprazole Sodium (Protonix Inj) 40 mg IVP DAILY [facility] Last Admin: 09/20/18 09:17 Dose: 40 mg Paroxetine HCl (Paxil) 20 mg PO DAILY [facility] Last Admin: 09/20/18 09:17 Dose: 20 mg Potassium Chloride (K-Dur 20 Meq Er Tab) 40 meq PO DAILY [facility] Last Admin: 09/20/18 09:17 Dose: 40 meq Promethazine HCl (Phenergan Syrup) 6.25 mg PO Q4H PRN PRN Reason: Cough Last Admin: 09/19/18 13:47 Dose: 6.25 mg Vancomycin HCl (Vancocin (Oral Or Rectal Use)) 500 mg PO QID [facility]; Protocol Last Admin: 09/20/18 09:18 Dose: 500 mg - Labs Labs: 09/19/18 07:30 09/20/18 07:56 PT 12.0 SECONDS (9.7-12.2) 09/16/18 01:18 INR 1.1 09/16/18 01:18 APTT 29 SECONDS (21-34) 09/16/18 01:18
[2018-09-20] MEDS: Dextrose 5%/0.9% NS 1,000 ML IV SCH (12:58)
--- NOTE | 2018-09-20 22:27 | CP.PCM.PN ---
Subjective - Date & Time of Evaluation Date of Evaluation: 09/20/18 Time of Evaluation: 14:10 - Subjective Subjective: Patient seen and evaluated. No cardiac events noted eview of Systems - Constitutional Constitutional: absent: Anorexia, Frequent Falls, Night Sweats, Weight Loss, Weakness - EENT Eyes: absent: Blurred Vision, Requires Corrective Lenses, Other Visual Disturbances Ears: absent: Ear Discharge, Dizziness Nose/Mouth/Throat: absent: Epistaxis, Nasal Congestion, Nose Pain, Bleeding Gum s, Dysphagia, Mouth Pain - Cardiovascular Cardiovascular: absent: Chest Pain, Claudication, Irregular Heart Rhythm, Leg Edema, Palpitations, Syncope - Respiratory Respiratory: Cough. absent: Dyspnea, Stridor, Excessive Mucous Production - Gastrointestinal Gastrointestinal: Diarrhea, Nausea, Vomiting. absent: Abdominal Pain, Fecal Incontinence, Loose Stools - Musculoskeletal Musculoskeletal: absent: Abnormal Gait, Muscle Weakness, Stiffness - Integumentary Integumentary: absent: Alopecia, Change in Pigmentation, Photosensitivity, Swelling - Neurological Neurological: absent: Dizziness, Tremor, Vertigo, Weakness - Psychiatric Psychiatric: absent: Abnormal Sleep Pattern, Anhedonia, Hopelessness, Panic Attacks - Endocrine Endocrine: absent: Polydipsia, Polyphagia, Polyuria - Hematologic/Lymphatic Hematologic: absent: Easy Bleeding, Easy Bruising Physical Exam - Head Exam Head Exam: ATRAUMATIC, NORMAL INSPECTION, NORMOCEPHALIC - Eye Exam Eye Exam: EOMI, Normal appearance, PERRL. absent: Periorbital tenderness Pupil Exam: NORMAL ACCOMODATION, PERRL. absent: Irregular, Unequal - ENT Exam ENT Exam: Mucous Membranes Moist, Normal Oropharynx - Respiratory Exam Respiratory Exam: Clear to Auscultation Bilateral, NORMAL BREATHING PATTERN. absent: Prolonged Expiratory Phase, Respiratory Distress - Cardiovascular Exam Cardiovascular Exam: REGULAR RHYTHM, +S1, +S2 - GI/Abdominal Exam GI & Abdominal Exam: Normal Bowel Sounds, Soft. absent: Tenderness - Extremities Exam Extremities exam: Positive for: normal inspection. Negative for: full ROM, pedal edema - Back Exam Back exam: NORMAL INSPECTION. absent: paraspinal tenderness - Neurological Exam Neurological exam: Alert, CN II-XII Intact, Oriented x3 - Psychiatric Exam Psychiatric exam: Normal Affect, Normal Mood - Skin Skin Exam: Dry, Intact Assessment and Plan - Assessment and Plan (Free Text) Assessment: 1.Syncope: Non cardiogenic Likleysecondary to dehydration -EKG sinus rhythm on admission -Head CT: negative -Troponin (-)x3 ECHO: Borderline Normal EF. o major valve issues 2. Cough -Promethazine 6.25mg PO Q4 PRN -dUONEB 2.5MG INH RQ4 PRN 3. Depression -Paxil 20mg PO Daily 4. Anxiety -Librium 50mg PO Q12 H ppx - Heparin -Protonix Medical management Objective - Vital Signs/Intake and Output Vital Signs (last 24 hours): Temp Pulse Resp BP Pulse Ox 97.3 F L 80 20 111/76 97 09/20/18 16:00 09/20/18 16:00 09/20/18 16:00 09/20/18 16:00 09/20/18 16:00 Intake and Output: 09/20/18 09/21/18 18:59 06:59 Intake Total 640 Balance 640 - Medications Medications: Current Medications Albuterol Sulfate (Albuterol 0.083% Inhal Deidre (2.5 Mg/3 Ml) Ud) 2.5 mg INH RQ4 PRN PRN Reason: Shortness of Breath Last Admin: 09/18/18 07:40 Dose: 2.5 mg Albuterol/Ipratropium (Duoneb 3 Mg/0.5 Mg (3 Ml) Ud) 3 ml INH RQ6 [facility] Last Admin: 09/20/18 17:10 Dose: 3 ml Heparin Sodium (Porcine) (Heparin) 5,000 units SC Q12 [facility] Last Admin: 09/20/18 21:21 Dose: 5,000 units Dextrose/Sodium Chloride (Dextrose 5%/0.9% Ns 1000 Ml) 1,000 mls @ 80 mls/hr IV .[id number] [facility] Last Admin: 09/20/18 12:58 Dose: 80 mls/hr Iron (Ferocon) 1 cap PO DAILY [facility] Last Admin: 09/20/18 09:17 Dose: 1 cap Ondansetron HCl (Zofran Inj) 4 mg IVP DAILY PRN PRN Reason: Nausea/Vomiting Pantoprazole Sodium (Protonix Inj) 40 mg IVP DAILY [facility] Last Admin: 09/20/18 09:17 Dose: 40 mg Paroxetine HCl (Paxil) 20 mg PO DAILY [facility] Last Admin: 09/20/18 09:17 Dose: 20 mg Potassium Chloride (K-Dur 20 Meq Er Tab) 40 meq PO DAILY [facility] Last Admin: 09/20/18 09:17 Dose: 40 meq Promethazine HCl (Phenergan Syrup) 6.25 mg PO Q4H PRN PRN Reason: Cough Last Admin: 09/19/18 13:47 Dose: 6.25 mg Vancomycin HCl (Vancocin (Oral Or Rectal Use)) 500 mg PO QID [facility]; Protocol Last Admin: 09/20/18 22:07 Dose: Not Given - Labs Labs: 09/19/18 07:30 09/20/18 07:56 PT 12.0 SECONDS (9.7-12.2) 09/16/18 01:18 INR 1.1 09/16/18 01:18 APTT 29 SECONDS (21-34) 09/16/18 01:18
[2018-09-21] MEDS: Dextrose 5%/0.9% NS 1,000 ML IV SCH ×2 (00:50→10:02)
[2018-09-21] MEDS: Albuterol-Ipratrop 3 mg / 0.5 (3 ml) UD INH SCH ×3 (02:58→13:15)
--- NOTE | 2018-09-21 07:55 | CP.PCM.PN ---
<HooddiomedeskajalHeriberto - Last Filed: 09/21/18 08:43> Subjective - Date & Time of Evaluation Date of Evaluation: 09/21/18 Time of Evaluation: 07:52 - Subjective Subjective: GI Fellow PGY4, Progress note. Patient is alert and oriented to self, location and year. He appears to be doing well, tolerating diet. Denies diarrhea, fevers, abdominal pain. 5pt ROS completed and negative except for above. Objective - Vital Signs/Intake and Output Vital Signs (last 24 hours): Temp Pulse Resp BP Pulse Ox 97.9 F 86 20 158/87 H 98 09/20/18 23:50 09/20/18 23:50 09/20/18 23:50 09/20/18 23:50 09/20/18 23:50 Intake and Output: 09/21/18 09/21/18 06:59 18:59 Intake Total 640 Output Total 600 Balance 40 - Medications Medications: Current Medications Albuterol Sulfate (Albuterol 0.083% Inhal Deidre (2.5 Mg/3 Ml) Ud) 2.5 mg INH RQ4 PRN PRN Reason: Shortness of Breath Last Admin: 09/18/18 07:40 Dose: 2.5 mg Albuterol/Ipratropium (Duoneb 3 Mg/0.5 Mg (3 Ml) Ud) 3 ml INH RQ6 [facility] Last Admin: 09/21/18 02:58 Dose: Not Given Heparin Sodium (Porcine) (Heparin) 5,000 units SC Q12 [facility] Last Admin: 09/20/18 21:21 Dose: 5,000 units Dextrose/Sodium Chloride (Dextrose 5%/0.9% Ns 1000 Ml) 1,000 mls @ 80 mls/hr IV .[id number] [facility] Last Admin: 09/21/18 00:50 Dose: 80 mls/hr Iron (Ferocon) 1 cap PO DAILY [facility] Last Admin: 09/20/18 09:17 Dose: 1 cap Ondansetron HCl (Zofran Inj) 4 mg IVP DAILY PRN PRN Reason: Nausea/Vomiting Pantoprazole Sodium (Protonix Inj) 40 mg IVP DAILY [facility] Last Admin: 09/20/18 09:17 Dose: 40 mg Paroxetine HCl (Paxil) 20 mg PO DAILY [facility] Last Admin: 09/20/18 09:17 Dose: 20 mg Potassium Chloride (K-Dur 20 Meq Er Tab) 40 meq PO DAILY [facility] Last Admin: 09/20/18 09:17 Dose: 40 meq Promethazine HCl (Phenergan Syrup) 6.25 mg PO Q4H PRN PRN Reason: Cough Last Admin: 09/19/18 13:47 Dose: 6.25 mg Vancomycin HCl (Vancocin (Oral Or Rectal Use)) 500 mg PO QID [facility]; Protocol Last Admin: 09/20/18 22:07 Dose: Not Given - Labs Labs: 09/19/18 07:30 09/20/18 07:56 PT 12.0 SECONDS (9.7-12.2) 09/16/18 01:18 INR 1.1 09/16/18 01:18 APTT 29 SECONDS (21-34) 09/16/18 01:18 - Constitutional Appears: Non-toxic, No Acute Distress, Chronically Ill - Eye Exam Eye Exam: Conjunctival injection, EOMI, Normal appearance - ENT Exam ENT Exam: Mucous Membranes Moist, Normal Exam - Respiratory Exam Respiratory Exam: Clear to Ausculation Bilateral, NORMAL BREATHING PATTERN - Cardiovascular Exam Cardiovascular Exam: REGULAR RHYTHM, +S1, +S2 - GI/Abdominal Exam GI & Abdominal Exam: Soft, Normal Bowel Sounds. absent: Tenderness - Extremities Exam Extremities Exam: Normal Inspection. absent: Pedal Edema - Neurological Exam Neurological Exam: Alert, Awake, Oriented x3 - Psychiatric Exam Psychiatric exam: Normal Affect, Normal Mood - Skin Skin Exam: Normal Color, Warm Assessment and Plan - Assessment and Plan (Free Text) Assessment: #Acute diarrhea, ?CDAD #Severe dehydration #CHELY #Alcohol abuse #Tobacco abuse #Syncope #Depression #COPD PLAN: -Labs reviewed. -CT A/P IV, PO contrast w/o acute pathology -Cdiff negative -stop Abx. Symptoms resolved, Cdiff negative -CIMS protocol -Likely has chronic alcoholic liver disease. Continue to monitor. -Thiamine and folic acid. Replace electrolytes. -Regular diet -Advised patient to quit alcohol to have a longer, higher quality of life. Patient understood. Recommend AA. -Recommend routine outpatient colonoscopy Case discussed with Dr. Padilla, see attestation. <Seamus Padilla Y - Last Filed: 09/21/18 08:51> Objective - Vital Signs/Intake and Output Vital Signs (last 24 hours): Temp Pulse Resp BP Pulse Ox 98 F 90 20 126/74 99 09/21/18 08:06 09/21/18 08:06 09/21/18 08:06 09/21/18 08:06 09/21/18 08:06 Intake and Output: 09/21/18 09/21/18 06:59 18:59 Intake Total 640 Output Total 600 Balance 40 - Medications Medications: Current Medications Albuterol/Ipratropium (Duoneb 3 Mg/0.5 Mg (3 Ml) Ud) 3 ml INH RQ6 [facility] Last Admin: 09/21/18 02:58 Dose: Not Given Heparin Sodium (Porcine) (Heparin) 5,000 units SC Q12 [facility] Last Admin: 09/20/18 21:21 Dose: 5,000 units Dextrose/Sodium Chloride (Dextrose 5%/0.9% Ns 1000 Ml) 1,000 mls @ 80 mls/hr IV .[id number] [facility] Last Admin: 09/21/18 00:50 Dose: 80 mls/hr Iron (Ferocon) 1 cap PO DAILY [facility] Last Admin: 09/20/18 09:17 Dose: 1 cap Ondansetron HCl (Zofran Inj) 4 mg IVP DAILY PRN PRN Reason: Nausea/Vomiting Pantoprazole Sodium (Protonix Inj) 40 mg IVP DAILY [facility] Last Admin: 09/20/18 09:17 Dose: 40 mg Paroxetine HCl (Paxil) 20 mg PO DAILY [facility] Last Admin: 09/20/18 09:17 Dose: 20 mg Potassium Chloride (K-Dur 20 Meq Er Tab) 40 meq PO DAILY [facility] Last Admin: 09/20/18 09:17 Dose: 40 meq Promethazine HCl (Phenergan Syrup) 6.25 mg PO Q4H PRN PRN Reason: Cough Last Admin: 09/19/18 13:47 Dose: 6.25 mg - Labs Labs: 09/19/18 07:30 09/20/18 07:56 PT 12.0 SECONDS (9.7-12.2) 09/16/18 01:18 INR 1.1 09/16/18 01:18 APTT 29 SECONDS (21-34) 09/16/18 01:18 Attending/Attestation - Attestation I have personally seen and examined this patient.: Yes I have fully participated in the care of the patient.: Yes I have reviewed all pertinent clinical information, including history, physical exam and plan: Yes Notes (Text): 09/21/18 08:48 I have seen and examined patient with GI fellow. No acute events overnight, no bowel movements. He is seen resting in bed comfortably, alert and oriented. He denies abdominal pain, nausea, vomiting, fever/chills. Tolerating PO liquids without difficulty. ETOH abuse AMS - resolved, likely secondary to withdrawal COPD Diarrhea - resolved CT imaging reviewed by me showing no gross GI pathology - Advance diet as tolerated - Suggest discontinuing antibiotic therapy - ETOH cessation counseling - Patient would benefit from additional outpatient follow up and elective screening colonoscopy - No further planned GI intervention at this time, will sign off case. Please reconsult as necessary, thank you. Case discussed with Dr. Escamilla.
--- NOTE | 2018-09-21 09:29 | CP.PCM.PN ---
<Eh Trejo - Last Filed: 09/21/18 17:26> Subjective - Date & Time of Evaluation Date of Evaluation: 09/21/18 Time of Evaluation: 09:29 - Subjective Subjective: PGY-2 Progress Note: Dr. Billy Service Patient seen and examined at bedside. Per nursing no acute events occurred overnight. Patient denies any chest pain, fevers, chills, shortness of breath, nausea, vomiting, or any other complaints. Objective - Vital Signs/Intake and Output Vital Signs (last 24 hours): Temp Pulse Resp BP Pulse Ox 98 F 90 20 126/74 99 09/21/18 08:06 09/21/18 08:06 09/21/18 08:06 09/21/18 08:06 09/21/18 08:06 Intake and Output: 09/21/18 09/21/18 06:59 18:59 Intake Total 640 Output Total 600 Balance 40 - Medications Medications: Current Medications Albuterol/Ipratropium (Duoneb 3 Mg/0.5 Mg (3 Ml) Ud) 3 ml INH RQ6 [facility] Last Admin: 09/21/18 07:15 Dose: 3 ml Heparin Sodium (Porcine) (Heparin) 5,000 units SC Q12 [facility] Last Admin: 09/20/18 21:21 Dose: 5,000 units Dextrose/Sodium Chloride (Dextrose 5%/0.9% Ns 1000 Ml) 1,000 mls @ 80 mls/hr IV .[id number] [facility] Last Admin: 09/21/18 00:50 Dose: 80 mls/hr Iron (Ferocon) 1 cap PO DAILY [facility] Last Admin: 09/20/18 09:17 Dose: 1 cap Ondansetron HCl (Zofran Inj) 4 mg IVP DAILY PRN PRN Reason: Nausea/Vomiting Pantoprazole Sodium (Protonix Inj) 40 mg IVP DAILY [facility] Last Admin: 09/20/18 09:17 Dose: 40 mg Paroxetine HCl (Paxil) 20 mg PO DAILY [facility] Last Admin: 09/20/18 09:17 Dose: 20 mg Potassium Chloride (K-Dur 20 Meq Er Tab) 40 meq PO DAILY [facility] Last Admin: 09/20/18 09:17 Dose: 40 meq Promethazine HCl (Phenergan Syrup) 6.25 mg PO Q4H PRN PRN Reason: Cough Last Admin: 09/19/18 13:47 Dose: 6.25 mg - Labs Labs: 09/19/18 07:30 09/20/18 07:56 PT 12.0 SECONDS (9.7-12.2) 09/16/18 01:18 INR 1.1 09/16/18 01:18 APTT 29 SECONDS (21-34) 09/16/18 01:18 - Head Exam Head Exam: ATRAUMATIC, NORMAL INSPECTION - Eye Exam Eye Exam: EOMI, Normal appearance, PERRL Pupil Exam: NORMAL ACCOMODATION, PERRL. absent: Irregular, Unequal - ENT Exam ENT Exam: Mucous Membranes Moist, Normal Oropharynx - Respiratory Exam Respiratory Exam: Clear to Ausculation Bilateral, NORMAL BREATHING PATTERN. absent: Prolonged Expiratory Phase, Respiratory Distress - Cardiovascular Exam Cardiovascular Exam: REGULAR RHYTHM, +S1, +S2. absent: Rubs - GI/Abdominal Exam GI & Abdominal Exam: Soft, Normal Bowel Sounds. absent: Rigid, Hyperactive Bowel Sounds - Extremities Exam Extremities Exam: Full ROM, Normal Inspection. absent: Pedal Edema - Neurological Exam Neurological Exam: Alert, Awake, CN II-XII Intact, Oriented x3 - Psychiatric Exam Psychiatric exam: Normal Affect, Normal Mood. absent: Depressed, Flat Affect - Skin Skin Exam: Dry, Intact, Normal Color Assessment and Plan - Assessment and Plan (Free Text) Assessment: 68 year old male with a past medical history of hypertension, anxiety and depression admitted for syncopal episode. Cardiology consulted for syncope. Plan: 1.Syncope -EKG sinus rhythm on admission -Head CT: negative -Troponin (-)x2. 2. Cough -Promethazine 6.25mg PO Q4 PRN -Duoneb 3ml INH RQ6 [facility] 3. Depression -Paxil 20mg PO Daily ppx - Heparin -Protonix Plan discussed with Attending Dr. Billy. Eh Trejo, PGY-2 <José Antonio Billy - Last Filed: 09/21/18 22:01> Objective - Vital Signs/Intake and Output Vital Signs (last 24 hours): Temp Pulse Resp BP Pulse Ox 98.7 F 94 H 20 118/73 95 09/21/18 16:00 09/21/18 16:00 09/21/18 16:00 09/21/18 16:00 09/21/18 16:00 - Medications Medications: Current Medications Albuterol/Ipratropium (Duoneb 3 Mg/0.5 Mg (3 Ml) Ud) 3 ml INH RQ6 [facility] Last Admin: 09/21/18 13:15 Dose: 3 ml Heparin Sodium (Porcine) (Heparin) 5,000 units SC Q12 [facility] Last Admin: 09/21/18 09:57 Dose: 5,000 units Dextrose/Sodium Chloride (Dextrose 5%/0.9% Ns 1000 Ml) 1,000 mls @ 80 mls/hr IV .[id number] [facility] Last Admin: 09/21/18 10:02 Dose: Not Given Iron (Ferocon) 1 cap PO DAILY [facility] Last Admin: 09/21/18 10:01 Dose: 1 cap Ondansetron HCl (Zofran Inj) 4 mg IVP DAILY PRN PRN Reason: Nausea/Vomiting Pantoprazole Sodium (Protonix Ec Tab) 40 mg PO DAILY [facility] Paroxetine HCl (Paxil) 20 mg PO DAILY [facility] Last Admin: 09/21/18 09:57 Dose: 20 mg Potassium Chloride (K-Dur 20 Meq Er Tab) 40 meq PO DAILY [facility] Last Admin: 09/21/18 09:57 Dose: 40 meq Promethazine HCl (Phenergan Syrup) 6.25 mg PO Q4H PRN PRN Reason: Cough Last Admin: 09/21/18 17:32 Dose: 6.25 mg - Labs Labs: 09/19/18 07:30 09/20/18 07:56 PT 12.0 SECONDS (9.7-12.2) 09/16/18 01:18 INR 1.1 09/16/18 01:18 APTT 29 SECONDS (21-34) 09/16/18 01:18 Assessment and Plan - Assessment and Plan (Free Text) Assessment: Patient seen and examined personally by me. Plan of care d/w the medical office technology instructor and as documented
[2018-09-21] MEDS: Potassium Chloride 20 mEq ER Tab PO SCH (09:57)
[2018-09-21] MEDS: Ferrous Fum/Folic Acid/IF/VI 1 Cap PO SCH (10:01)
--- NOTE | 2018-09-21 17:19 | CP.PCM.PN ---
Subjective - Date & Time of Evaluation Date of Evaluation: 09/21/18 Time of Evaluation: 10:20 - Subjective Subjective: Patient seen and examined at bedside this AM. Patient is doing much better, his cough has improved and he is hopeful he can go home. Patient is afebrile, resting comfortably off nasal cannula. Exam: Gen - no acute distress, AAOx3 Card - RRR, no murmurs, rubs or gallops Lung - normal breathing pattern, diminished breath sounds bilaterally, no wheezes, rhonchi or rales GI - abdomen soft, nontender, no rebound, guarding, or rigidity A&P 1. 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 Dehydration - repeat CMP, check potassium repletion - recommendations as per medicine Objective - Vital Signs/Intake and Output Vital Signs (last 24 hours): Temp Pulse Resp BP Pulse Ox 98.7 F 94 H 20 118/73 95 09/21/18 16:00 09/21/18 16:00 09/21/18 16:00 09/21/18 16:00 09/21/18 16:00 Intake and Output: 09/21/18 09/21/18 06:59 18:59 Intake Total 640 Output Total 600 Balance 40 - Medications Medications: Current Medications Albuterol/Ipratropium (Duoneb 3 Mg/0.5 Mg (3 Ml) Ud) 3 ml INH RQ6 [facility] Last Admin: 09/21/18 13:15 Dose: 3 ml Heparin Sodium (Porcine) (Heparin) 5,000 units SC Q12 [facility] Last Admin: 09/21/18 09:57 Dose: 5,000 units Dextrose/Sodium Chloride (Dextrose 5%/0.9% Ns 1000 Ml) 1,000 mls @ 80 mls/hr IV .[id number] [facility] Last Admin: 09/21/18 10:02 Dose: Not Given Iron (Ferocon) 1 cap PO DAILY [facility] Last Admin: 09/21/18 10:01 Dose: 1 cap Ondansetron HCl (Zofran Inj) 4 mg IVP DAILY PRN PRN Reason: Nausea/Vomiting Pantoprazole Sodium (Protonix Inj) 40 mg IVP DAILY [facility] Last Admin: 09/21/18 09:58 Dose: 40 mg Paroxetine HCl (Paxil) 20 mg PO DAILY [facility] Last Admin: 09/21/18 09:57 Dose: 20 mg Potassium Chloride (K-Dur 20 Meq Er Tab) 40 meq PO DAILY [facility] Last Admin: 09/21/18 09:57 Dose: 40 meq Promethazine HCl (Phenergan Syrup) 6.25 mg PO Q4H PRN PRN Reason: Cough Last Admin: 09/19/18 13:47 Dose: 6.25 mg - Labs Labs: 09/19/18 07:30 09/20/18 07:56 PT 12.0 SECONDS (9.7-12.2) 09/16/18 01:18 INR 1.1 09/16/18 01:18 APTT 29 SECONDS (21-34) 09/16/18 01:18 Assessment and Plan (1) COPD (chronic obstructive pulmonary disease) Status: Acute (2) Smoking addiction Status: Acute
[2018-09-21] MEDS: Promethazine 6.25 MG/5 ML CUP PO PRN (17:32)
[2018-09-22] MEDS: Albuterol-Ipratrop 3 mg / 0.5 (3 ml) UD INH SCH ×3 (01:29→13:15)
[2018-09-22] MEDS: Dextrose 5%/0.9% NS 1,000 ML IV SCH (09:13)
[2018-09-22] MEDS: Potassium Chloride 20 mEq ER Tab PO SCH (09:14)
[2018-09-22] MEDS: Ferrous Fum/Folic Acid/IF/VI 1 Cap PO SCH (09:14)
[2018-09-22] MEDS ORDERED: Pantoprazole 40 mg EC Tab PO SCH (10:00)
--- NOTE | 2018-09-22 10:37 | PN ---
DATE: 09/21/2018 SUBJECTIVE: The patient was seen and examined at bedside 09/21/2018. Family was around, daughter, son, , grandkids. Discussion done. No fever. No chills. No hematuria or hematochezia. No swelling of the legs. No headache. No dizziness. No chest pain. No palpitation. PHYSICAL EXAMINATION: VITAL SIGNS: Temperature 98.7, pulse 94, respiratory rate 20, blood pressure 118/73, and pulse oximetry 95%. HEENT: Head: Normocephalic and atraumatic. Eyes: PERRLA. Extraocular movements intact. Conjunctivae clear. Nose patent. Mucous membranes moist. NECK: Supple. No carotid bruits or thyromegaly. CHEST: Bilaterally symmetrical. HEART: S1 and S2 positive. LUNGS: Clear to auscultation. ABDOMEN: Soft. Bowel sounds positive. No organomegaly. EXTREMITIES: No edema. No cyanosis. NEUROLOGICAL: The patient is awake and alert. Moving all 4 extremities. No focal deficits. MEDICATIONS: DuoNeb, heparin, dextrose, iron, Zofran, Protonix, Paxil, potassium, Phenergan. LABORATORY DATA: White blood cells 5.8, hemoglobin 14.4, hematocrit 40.6, and platelets 248. Sodium 134, potassium 3.5, BUN 5, creatinine 0.7, glucose 118. ASSESSMENT AND PLAN: Mr. Barriga is a 68-year-old male with hypokalemia, hyperglycemia, chronic obstructive pulmonary disease, actively smoking. 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 Tire Retreader is on the case. Continue DuoNeb, smoking cessation counseling needed, low dose chest CT as outpatient and pulmonary function test. Dehydration, got intravenous fluid, improved. History of ethanol abuse. Psychiatrist is on the case. Acute kidney injury, syncope, depression, acute diarrhea, GI is on the case, improved. Labs noted. Clostridium difficile negative. Stop antibiotics. Symptoms resolved. Has chronic alcoholic liver disease, need followup as outpatient. Thiamine and folic acid, replaced electrolytes, regular diet. The patient advised to quit alcohol. The patient and family understands. Recommended Alcoholic Anonymous. Recommended routine outpatient colonoscopy by GI to the patient and family. Appreciated all cons input. I have length of time discussion done with the patient. The patient's two daughters, son, , and grandkids. The patient will go to rehab, deconditioned, will follow up as outpatient. I gave my business card to the family. All questions answered. We will follow up. Hina Escamilla MD [facility]
--- NOTE | 2018-09-22 11:25 | CP.PCM.PN ---
Subjective - Date & Time of Evaluation Date of Evaluation: 09/22/18 Time of Evaluation: 11:25 - Subjective Subjective: PGY-2 Progress Note: Dr. Billy Service Patient seen and examined at bedside. Per nursing no acute events occurred overnight. Patient denies any chest pain, fevers, chills, shortness of breath, nausea, vomiting, or any other complaints. Objective - Vital Signs/Intake and Output Vital Signs (last 24 hours): Temp Pulse Resp BP Pulse Ox 98.4 F 105 H 20 116/73 93 L 09/22/18 08:00 09/22/18 08:00 09/22/18 08:00 09/22/18 08:00 09/22/18 08:00 Intake and Output: 09/22/18 09/22/18 06:59 18:59 Intake Total 640 Balance 640 - Medications Medications: Current Medications Albuterol/Ipratropium (Duoneb 3 Mg/0.5 Mg (3 Ml) Ud) 3 ml INH RQ6 [facility] Last Admin: 09/22/18 07:40 Dose: 3 ml Heparin Sodium (Porcine) (Heparin) 5,000 units SC Q12 [facility] Last Admin: 09/22/18 09:14 Dose: 5,000 units Iron (Ferocon) 1 cap PO DAILY [facility] Last Admin: 09/22/18 09:14 Dose: 1 cap Ondansetron HCl (Zofran Inj) 4 mg IVP DAILY PRN PRN Reason: Nausea/Vomiting Pantoprazole Sodium (Protonix Ec Tab) 40 mg PO DAILY [facility] Last Admin: 09/22/18 09:14 Dose: 40 mg Paroxetine HCl (Paxil) 20 mg PO DAILY [facility] Last Admin: 09/22/18 09:14 Dose: 20 mg Potassium Chloride (K-Dur 20 Meq Er Tab) 40 meq PO DAILY [facility] Last Admin: 09/22/18 09:14 Dose: 40 meq Promethazine HCl (Phenergan Syrup) 6.25 mg PO Q4H PRN PRN Reason: Cough Last Admin: 09/21/18 17:32 Dose: 6.25 mg - Labs Labs: 09/19/18 07:30 09/20/18 07:56 PT 12.0 SECONDS (9.7-12.2) 09/16/18 01:18 INR 1.1 09/16/18 01:18 APTT 29 SECONDS (21-34) 09/16/18 01:18 - Head Exam Head Exam: ATRAUMATIC, NORMAL INSPECTION - Eye Exam Eye Exam: EOMI, Normal appearance, PERRL. absent: Scleral icterus Pupil Exam: NORMAL ACCOMODATION, PERRL - ENT Exam ENT Exam: Mucous Membranes Moist, Normal Exam. absent: TM's Normal Bilaterally - Neck Exam Neck Exam: Full ROM, Normal Inspection - Respiratory Exam Respiratory Exam: Clear to Ausculation Bilateral, NORMAL BREATHING PATTERN. absent: Chest Wall Tenderness, Prolonged Expiratory Phase - Cardiovascular Exam Cardiovascular Exam: REGULAR RHYTHM, +S1, +S2 - GI/Abdominal Exam GI & Abdominal Exam: Soft, Normal Bowel Sounds. absent: Rigid, Hyperactive Lan l Sounds, Pulsatile Mass - Neurological Exam Neurological Exam: Alert, Awake, CN II-XII Intact, Oriented x3 - Psychiatric Exam Psychiatric exam: Normal Affect, Normal Mood. absent: Anxious, Suicidal Ideation - Skin Skin Exam: Dry, Intact, Warm. absent: Vesicles Assessment and Plan - Assessment and Plan (Free Text) Assessment: 68 year old male with a past medical history of hypertension, anxiety and depression admitted for syncopal episode. Cardiology consulted for syncope. Plan: 1.Syncope -EKG sinus rhythm on admission -Head CT: negative -Troponin (-)x1. 2. Cough -Promethazine 6.25mg PO Q4 PRN -Duoneb 3ml INH RQ6 [facility] 3. Depression -Paxil 20mg PO Daily ppx - Heparin -Protonix Plan discussed with Attending Dr. Billy. Eh Trejo, PGY-2
[2018-09-22 15:45] VITALS: BP 111/72; PULSE 90; TEMP 97.3; O2SAT 96
--- NOTE | 2018-09-22 16:04 | CP.PCM.PN ---
Subjective - Date & Time of Evaluation Date of Evaluation: 09/22/18 Time of Evaluation: 10:00 - Subjective Subjective: Patient seen and examined at bedside this AM, [id number] at bedside. Patient is doing much better, he has an infrequent cough with clear sputum. Patient is afebrile, resting comfortably on room air. Exam: Gen - no acute distress, AAOx3 Card - tachycardic, no murmurs, rubs or gallops Lung - normal breathing pattern, diminished breath sounds bilaterally, no wheezes, rhonchi or rales GI - abdomen soft, nontender, no rebound, guarding, or rigidity A&P 1. 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 - smoking cessation counseling completed - continue Duoneb - followup outpatient PFTs - recommend low dose chest CT - stable from pulmonary standpoint, followup with primary Objective - Vital Signs/Intake and Output Vital Signs (last 24 hours): Temp Pulse Resp BP Pulse Ox 97.3 F L 90 20 111/72 96 09/22/18 15:44 09/22/18 15:44 09/22/18 15:44 09/22/18 15:44 09/22/18 15:44 Intake and Output: 09/22/18 09/22/18 06:59 18:59 Intake Total 640 Balance 640 - Medications Medications: Current Medications Albuterol/Ipratropium (Duoneb 3 Mg/0.5 Mg (3 Ml) Ud) 3 ml INH RQ6 [facility] Last Admin: 09/22/18 13:15 Dose: 3 ml Heparin Sodium (Porcine) (Heparin) 5,000 units SC Q12 [facility] Last Admin: 09/22/18 09:14 Dose: 5,000 units Iron (Ferocon) 1 cap PO DAILY [facility] Last Admin: 09/22/18 09:14 Dose: 1 cap Ondansetron HCl (Zofran Inj) 4 mg IVP DAILY PRN PRN Reason: Nausea/Vomiting Pantoprazole Sodium (Protonix Ec Tab) 40 mg PO DAILY [facility] Last Admin: 09/22/18 09:14 Dose: 40 mg Paroxetine HCl (Paxil) 20 mg PO DAILY [facility] Last Admin: 09/22/18 09:14 Dose: 20 mg Potassium Chloride (K-Dur 20 Meq Er Tab) 40 meq PO DAILY [facility] Last Admin: 09/22/18 09:14 Dose: 40 meq Promethazine HCl (Phenergan Syrup) 6.25 mg PO Q4H PRN PRN Reason: Cough Last Admin: 09/21/18 17:32 Dose: 6.25 mg - Labs Labs: 09/19/18 07:30 09/20/18 07:56 PT 12.0 SECONDS (9.7-12.2) 09/16/18 01:18 INR 1.1 09/16/18 01:18 APTT 29 SECONDS (21-34) 09/16/18 01:18 Assessment and Plan (1) COPD (chronic obstructive pulmonary disease) Status: Acute (2) Smoking addiction Status: Acute
--- NOTE | 2018-09-22 16:13 | CP.PCM.PN ---
Subjective - Date & Time of Evaluation Date of Evaluation: 09/22/18 Time of Evaluation: 16:13 - Subjective Subjective: PATIENT SEEN AND EXAMINED AT THE BEDSIDE Objective - Vital Signs/Intake and Output Vital Signs (last 24 hours): Temp Pulse Resp BP Pulse Ox 97.3 F L 90 20 111/72 96 09/22/18 15:44 09/22/18 15:44 09/22/18 15:44 09/22/18 15:44 09/22/18 15:44 Intake and Output: 09/22/18 09/22/18 06:59 18:59 Intake Total 640 Balance 640 - Medications Medications: Current Medications Albuterol/Ipratropium (Duoneb 3 Mg/0.5 Mg (3 Ml) Ud) 3 ml INH RQ6 [facility] Last Admin: 09/22/18 13:15 Dose: 3 ml Heparin Sodium (Porcine) (Heparin) 5,000 units SC Q12 [facility] Last Admin: 09/22/18 09:14 Dose: 5,000 units Iron (Ferocon) 1 cap PO DAILY [facility] Last Admin: 09/22/18 09:14 Dose: 1 cap Ondansetron HCl (Zofran Inj) 4 mg IVP DAILY PRN PRN Reason: Nausea/Vomiting Pantoprazole Sodium (Protonix Ec Tab) 40 mg PO DAILY [facility] Last Admin: 09/22/18 09:14 Dose: 40 mg Paroxetine HCl (Paxil) 20 mg PO DAILY [facility] Last Admin: 09/22/18 09:14 Dose: 20 mg Potassium Chloride (K-Dur 20 Meq Er Tab) 40 meq PO DAILY [facility] Last Admin: 09/22/18 09:14 Dose: 40 meq Promethazine HCl (Phenergan Syrup) 6.25 mg PO Q4H PRN PRN Reason: Cough Last Admin: 09/21/18 17:32 Dose: 6.25 mg - Labs Labs: 09/19/18 07:30 09/20/18 07:56 PT 12.0 SECONDS (9.7-12.2) 09/16/18 01:18 INR 1.1 09/16/18 01:18 APTT 29 SECONDS (21-34) 09/16/18 01:18 Assessment and Plan - Assessment and Plan (Free Text) Assessment: PLACE UNDER THE SERVICE OF DR BROWN AT [facility] ----CALL FOR ADMITTING ORDER FOLLOW UP WITH DR BAIN IN HIS OFFICE -----CALL FOR APPOINTMENT ADDRESS YOUR COLONOSCOPY AT YOUR VISIT FOLLOW UP WITH DR OTTO IN HIS OFFICE -----CALL FOR APPOINTMENT ADDRESS YOUR PULMONARY FUNCTION TEST AND CHEST CT AT YOUR VISIT CONTINUE HOME MEDICATION MED REC ACTIVITY TOLERATED CALL DR BROWN FOR FURTHER ORDER
--- NOTE | 2018-09-27 07:05 | PN ---
DATE: 09/20/2018 SUBJECTIVE: The patient was seen and examined at the bedside on 09/20/2018, looking comfortable. Cough is better. Shortness of breath is better. No headache, no dizziness, no chest pain, no palpitations, no hematuria or hematochezia. PHYSICAL EXAMINATION: VITAL SIGNS: Temperature 97.4, pulse 91, respiratory rate 20, blood pressure 113/70, and pulse oximetry 95%. HEENT: Head is normocephalic and atraumatic. EYES: PERRLA. Extraocular movements are intact. Conjunctivae clear. Nose patent, mucosal membranes are moist. NECK: Supple. No carotid bruits or thyromegaly. CHEST: Bilaterally symmetric. HEART: S1 and S2 positive. LUNGS: Clear to auscultation. ABDOMEN: Soft. Bowel sounds present, no organomegaly. EXTREMITIES: No edema, no cyanosis. NEUROLOGIC: The patient is awake and alert. Follow simple commands. MEDICATIONS: Albuterol, heparin, dextrose, iron, Zofran, Protonix, Paxil, potassium, Phenergan, and vancomycin. LABORATORY DATA: White blood cell count noted , hemoglobin 14.4, hematocrit 40.6, platelets 240. Sodium 134, potassium 3.5, BUN 5, creatinine 0.7, and glucose 118. ASSESSMENT AND PLAN: Mr. Casarez, who is a 68-year-old male with a long history of smoking, hypertension and depression, anxiety, and pain with dyspnea on exertion, failed outpatient treatment with his primary care physician, came with syncope, need low dose CAT scan of the chest as outpatient due to heavy and long history of smoking. Discussion done with the patient, getting nebulizer treatment, chronic obstructive pulmonary disease, dehydration and got intravenous fluid, improved; history of ethanol abuse; psychiatrist is on the case, acute kidney injury, improving; has history of diarrhea, improved. Discussion done with the family. Repeat labs. We will follow up. Hina Escamilla MD MTDD
--- NOTE | 2018-09-27 23:50 | DS ---
The patient was seen and examined at the bedside on 09/22/2018. CHIEF COMPLAINT: Syncopal attack. HISTORY OF PRESENT ILLNESS: Mr. Corey Barriga is a 68-year-old male with a past medical history of COPD, depression and hypertension, who came to the emergency room with the family. As per family, the patient was evaluated by his primary care physician for regular visit a day before admission and was prescribed antibiotics because the patient was coughing and having upper respiratory tract infection. The patient went home, started his Zithromax. Shortly after that, the patient found 4 to 5 episodes of diarrhea and vomiting. The patient's heard a loud noise and found the patient was syncopized in the bathroom. The patient was noted to have a blood pressure of 71/40. The patient had a low blood pressure. EMS gave a bolus of 500 mg, brought the patient to the emergency room. HOSPITAL COURSE: We admitted the patient. The patient's daughter was at the bedside. She gave me the history. CAT scan of the head was done. CAT scan of the abdomen and pelvis was done. Seen by Dr. Chinmay Flood, wildlife biology technician; Dr. José Antonio Billy, bartender helper; Dr. Seamus Padilla of GI for nausea, vomiting and diarrhea. Seen by the psychiatrist. The patient improved. Then sent the patient to rehab TCU for completion of the treatment because the patient is very fatigued and tired, and he is not able to do his ADL. PAST MEDICAL HISTORY: Anxiety, COPD, hypertension. PAST SURGICAL HISTORY: No surgical history. FAMILY HISTORY: Father and mother, noncontributory. ALLERGIES: THE PATIENT IS NOT ALLERGIC WITH ANY MEDICATION. HOME MEDICATIONS: Reviewed by me. HABITS: Tobacco, yes. Alcohol, yes. Substance abuse, no. Lives with . REVIEW OF SYSTEMS: The patient was seen and examined at bedside. Looking comfortable. No headache or dizziness. No chest pain, no palpitation. No hematuria, no hematochezia. PHYSICAL EXAMINATION: GENERAL: Looking comfortable. VITAL SIGNS: Temperature 97.3, pulse 90, respiratory rate 20, blood pressure 111/72, pulse oximetry 96%. HEENT: Head is normocephalic and atraumatic. Eyes, PERRLA. Extraocular muscles intact. Conjunctivae clear. Nose patent. Mucous membranes moist. NECK: Supple. No carotid bruit. No JVD or thyromegaly. CHEST: Bilaterally symmetrical. HEART: S1 and S2 positive. LUNGS: Clear to auscultation. ABDOMEN: Soft. Bowel sounds present. No organomegaly. EXTREMITIES: No edema. No cyanosis. NEUROLOGIC: The patient is awake and alert, moving all four extremities. No focal deficit. MEDICATIONS: DuoNeb, heparin, iron, Zofran, pantoprazole, Paxil, potassium, Phenergan. LABORATORY DATA: White blood cell 5.8, hemoglobin 14.4, hematocrit 48.6, platelets 248. Sodium 134, potassium 3.5, BUN 12, creatinine 0.7, glucose 118. ASSESSMENT AND PLAN: Mr. 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 Still smoking, agreed to quit smoking. DuoNeb given. Need followup outpatient pulmonary function tests. Recommended CAT scan of the chest because of heavy and prolonged smoking. History of drug abuse, history of diarrhea and dehydration. GI is on the case. Clostridium difficile toxin was negative. Brought intravenous fluid. History of ethanol abuse, acute kidney injury, history of syncope, depression. Antibiotic was finished. Symptoms of diarrhea resolved. The patient has chronic alcoholic liver disease, needs good followup, thiamine and folic acid. Electrolytes replaced. The patient agreed to quit smoking and drinking. Recommended AA. Need outpatient colonoscopy by GI and pulmonary function tests by wildlife biology technician. The patient is transferred to [facility] to improve activities of daily living. Repeat labs. Length of time discussion was done with the patient's daughter, son and . I gave them my business card. We will follow up. Hina Escamilla MD [id number]
== END 2018-09-22 17:58 | disposition home or self-care (01) | DRG 312 ==
LOC: C.ER 00:59 → C.9E 04:35 → C.5S 07:26 → C.9E 08:50 → C.5S 11:15
PROVIDERS: ADMIT Internal Medicine; ATTEND Internal Medicine
DX: R55 Syncope and collapse (principal); N17.9 Acute kidney failure, unspecified; E86.0 Dehydration; J44.1 Chronic obstructive pulmonary disease with (acute) exacerbation; J98.11 Atelectasis; F10.239 Alcohol dependence with withdrawal, unspecified; I10 Essential (primary) hypertension; N28.9 Disorder of kidney and ureter, unspecified; F41.9 Anxiety disorder, unspecified; R11.10 Vomiting, unspecified; R19.7 Diarrhea, unspecified; R50.9 Fever, unspecified; E83.39 Other disorders of phosphorus metabolism; E87.8 Other disorders of electrolyte and fluid balance, not elsewhere classified; R80.9 Proteinuria, unspecified; R73.9 Hyperglycemia, unspecified; R31.9 Hematuria, unspecified; R94.5 Abnormal results of liver function studies; E87.6 Hypokalemia; F32.9 Major depressive disorder, single episode, unspecified; J06.9 Acute upper respiratory infection, unspecified; K70.9 Alcoholic liver disease, unspecified; N40.0 Benign prostatic hyperplasia without lower urinary tract symptoms; F17.210 Nicotine dependence, cigarettes, uncomplicated; Y90.0 Blood alcohol level of less than 20 mg/100 ml; Z86.73 Personal history of transient ischemic attack (TIA), and cerebral infarction without residual deficits; Z80.0 Family history of malignant neoplasm of digestive organs

== ENCOUNTER 2018-10-22 07:58 | Outpatient (CLI) | payer MEDICARE, MEDICAID | END 2018-10-22 07:59 | disposition home or self-care (01) | LOC: C.CTH 07:58 ==

== ENCOUNTER 2018-12-02 19:00 | Outpatient (CLI) | payer MEDICARE, MEDICAID | END 2018-12-02 19:01 | disposition home or self-care (01) | LOC: C.SLEEP 19:01 ==